=== PATIENT | female | born 1945 | race Caucasian/White ===

== ENCOUNTER 2024-10-27 11:01 | Emergency (ER) | payer MEDICARE ==
[~2024-10-27] VITALS: Ht 157.5 cm; Wt 66.0 kg
[2024-10-27] MEDS ORDERED: ASPIRIN REGIMEN81 MG PO (11:14)
[2024-10-27] MEDS ORDERED: ARTHRITIS PAIN650 MG PO (11:14)
[2024-10-27] MEDS ORDERED: CALCIUM 600-VI1 EAC3 PO (11:15)
[2024-10-27] MEDS ORDERED: BACLOFEN5 MG PO (11:15)
[2024-10-27] MEDS ORDERED: ATORVASTATIN CA80 MG PO (11:15)
[2024-10-27] MEDS ORDERED: CLOBETASOL PROP50 ML TOP (11:16)
[2024-10-27] MEDS ORDERED: VITAMIN D325 MC2 PO (11:16)
[2024-10-27] MEDS ORDERED: FLEET ENEMA133 ML PR (11:17)
[2024-10-27] MEDS ORDERED: COL-RITE100 MG PO (11:17)
[2024-10-27] MEDS ORDERED: FEROSUL325 MG PO (11:17)
[2024-10-27] MEDS ORDERED: DULCOLAX STOOL100 MG PO (11:17)
[2024-10-27] MEDS ORDERED: FARXIGA10 MG PO (11:17)
[2024-10-27] MEDS ORDERED: FLUOXETINE HCL40 MG PO (11:18)
[2024-10-27] MEDS ORDERED: HYDROCHLOROTHIA25 MG PO (11:18)
[2024-10-27] MEDS ORDERED: GLUCAGON EMERGEN1 M1 INJ (11:18)
[2024-10-27] MEDS ORDERED: HYDROCODON-ACE1 EA10 PO (11:19)
[2024-10-27] MEDS ORDERED: LANTUS100 UNITS/ SUB-Q (11:19)
[2024-10-27] MEDS ORDERED: HUMALOG100 UNIT/1 SUB-Q (11:19)
[2024-10-27] MEDS ORDERED: MELATONIN1 MG PO (11:20)
[2024-10-27] MEDS ORDERED: GENTLE LAX400 MG/5 M PO (11:20)
[2024-10-27] MEDS ORDERED: ZESTRIL20 MG PO (11:20)
[2024-10-27] MEDS ORDERED: MULTI VITAMIN1 EACH PO (11:21)
[2024-10-27] MEDS ORDERED: [UNRECOGNIZED DRUG - OTHER] MM (11:21)
[2024-10-27] MEDS ORDERED: MIRTAZAPINE15 MG PO (11:21)
[2024-10-27] MEDS ORDERED: BASE B,POLYETHYL1 GM PO (11:22)
[2024-10-27] MEDS ORDERED: NYSTATIN1 EAC4 TOP (11:22)
[2024-10-27] MEDS ORDERED: NARCAN4 MG NS (11:22)
[2024-10-27] MEDS ORDERED: RIFAMPIN300 MG PO (11:23)
[2024-10-27] MEDS ORDERED: SENNA LAX8.6 MG PO (11:23)
[2024-10-27] MEDS ORDERED: LYRICA50 MG PO (11:23)
[2024-10-27 11:30] LABS: BASOPHILS 1.1 % (0-2); EOSINOPHILS 4.6 % (0-6); HEMOGLOBIN 10.4 g/dL (12.0-18.0); LYMPHOCYTES 30.6 % (24-44); MCH 29.3 (27-36); MCHC 33.7 g/dl (30-36); MCV 86.7 fl (81-99); MONOCYTES 10.5 % (0-12); NEUTROPHILS 53.2 % (39-80); PLATELET COUNT 309 K/uL (140-440); RBC 3.57 M/ul (4.3-5.7); RDW 17.8 (10.5-15.0)
[2024-10-27 11:51] LABS: ALBUMIN 2.7 g/dL (3.4-5.0); ALBUMIN/GLOBULIN RATIO 0.6 (1.1-2.4); ANION GAP 10.2 (7-21); BILIRUBIN, TOTAL 0.4 mg/dL (0.2-1.0); BUN/CREATININE RATIO 51.26 (6.0-28.6); CALCIUM 8.6 mg/dL (8.5-10.1); CREATININE, SERUM 1.58 mg/dL (0.55-1.02); POTASSIUM 4.2 mmol/L (3.5-5.1); PROTEIN, TOTAL 7.2 g/dL (6.4-8.2)
[2024-10-27 13:03] LABS: BILIRUBIN, URINE NEGATIVE (negative); BLOOD/HGB, URINE NEGATIVE (Negative); KETONE, URINE NEGATIVE (Negative); LEUK ESTERASE, URINE NEGATIVE (negative); NITRITE, URINE NEGATIVE (negative)
[2024-10-27 14:45] VITALS: BP 180/59
--- NOTE | 2024-10-28 13:38 | EKG ---
[facility] [address] [place], [place] [address] Signed Normal sinus rhythm Right bundle branch block Abnormal ECG No previous ECGs available Confirmed by Alpa Smith MD ([id number]) on 10/28/2024 1:38:07 PM Electronically Signed By: ALPA SMITH MD 10/28/24 1338 PATIENT NAME: DANIEL BERRIOS Electrocardiogram DATE OF : 47 PHYSICIAN: ALPA SMITH MD REPORT #: [id number] REPORT IS CONFIDENTIAL AND NOT TO BE RELEASED WITHOUT AUTHORIZATION
== END 2024-10-27 14:45 | disposition home or self-care (01) ==
LOC: ED 11:01
PROVIDERS: Emergency Medicine
DX: R53.1 Weakness (principal); J32.9 Chronic sinusitis, unspecified; Z79.82 Long term (current) use of aspirin; Z79.899 Other long term (current) drug therapy; Z79.02 Long term (current) use of antithrombotics/antiplatelets
CPT/HCPCS: 36415; 51701; 70450; 71045; 80053; 81003; 83690; 83880; 84484; 85025; 93005; 93010; 99285-25

== ENCOUNTER 2024-11-10 12:41 | Observation (INO) | payer MEDICARE ==
[~2024-11-10] VITALS: Ht 157.5 cm; Wt 67.9 kg
[~2024-11-10 12:41] MED LIST: ARTHRITIS PAIN650 MG PO; ASPIRIN REGIMEN81 MG PO; ATORVASTATIN CA80 MG PO; BACLOFEN5 MG PO; BASE B,POLYETHYL1 GM PO; CALCIUM 600-VI1 EAC3 PO; CLOBETASOL PROP50 ML TOP; COL-RITE100 MG PO; DULCOLAX STOOL100 MG PO; FARXIGA10 MG PO; FEROSUL325 MG PO; FLEET ENEMA133 ML PR; FLUOXETINE HCL40 MG PO; GENTLE LAX400 MG/5 M PO; GLUCAGON EMERGEN1 M1 INJ; HUMALOG100 UNIT/1 SUB-Q; HYDROCHLOROTHIA25 MG PO; HYDROCODON-ACE1 EA10 PO; LANTUS100 UNITS/ SUB-Q; LYRICA50 MG PO; MELATONIN1 MG PO; MIRTAZAPINE15 MG PO; MULTI VITAMIN1 EACH PO; NARCAN4 MG NS; NYSTATIN1 EAC4 TOP; RIFAMPIN300 MG PO; SENNA LAX8.6 MG PO; VITAMIN D325 MC2 PO; ZESTRIL20 MG PO; [UNRECOGNIZED DRUG - OTHER] MM
--- OUTSIDE RECORDS SUMMARY | 2024-11-10 12:47 | XMS ---
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 Giancarlo has no Care Guidelines for this patient. Ilana VISIT COUNT (12 MO.) 2 [facility] [place] [facility]. TOTAL 2 NOTE: Visits indicate total known visits. ED/[facility] VISIT TRACKING (12 MO.) 11/10/2024 12:[address] [facility] [place] TYPE: Emergency COMPLAINT: - BLOOD SUGAR PROBLEMS 10/27/2024 11:02 [facility] [place] TYPE: Emergency COMPLAINT: - ALTERED MENTAL STATUS DIAGNOSES: - Altered mental status, unspecified - Chronic sinusitis, unspecified - group home (current) use of antithrombotics/antiplatelets - group home (current) use of aspirin - Other nursing home (current) drug therapy - Weakness INPATIENT VISIT TRACKING (12 MO.) No inpatient visits to display in this time frame [email or web address]
[2024-11-10] MEDS ORDERED: SODIUM CHLORIDE 0.9% 1,000 ML IV ONE (13:00)
[2024-11-10] MEDS ORDERED: DEXTROSE 50% 50 ML SYR IV ONE (13:00)
[2024-11-10 13:01] LABS: BASOPHILS 0.9 % (0-2); EOSINOPHILS 5.8 % (0-6); HEMATOCRIT 28.9 % (35.0-50.0); HEMOGLOBIN 9.8 g/dL (12.0-18.0); LYMPHOCYTES 38.2 % (24-44); MCH 29.3 (27-36); MCV 86.3 fl (81-99); MONOCYTES 9.9 % (0-12); NEUTROPHILS 45.2 % (39-80); PLATELET COUNT 208 K/uL (140-440); RBC 3.34 M/ul (4.3-5.7); RDW 17.1 (10.5-15.0)
[2024-11-10 13:30] LABS: ALBUMIN 2.7 g/dL (3.4-5.0); ALBUMIN/GLOBULIN RATIO 0.66 (1.1-2.4); ANION GAP 10.4 (7-21); BILIRUBIN, TOTAL 0.2 mg/dL (0.2-1.0); BUN/CREATININE RATIO 31.57 (6.0-28.6); CALCIUM 8.1 mg/dL (8.5-10.1); CREATININE, SERUM 1.33 mg/dL (0.55-1.02); POTASSIUM 3.4 mmol/L (3.5-5.1); PROTEIN, TOTAL 6.8 g/dL (6.4-8.2)
[2024-11-10 15:59] LABS: BILIRUBIN, URINE NEGATIVE (negative); BLOOD/HGB, URINE NEGATIVE (Negative); KETONE, URINE NEGATIVE (Negative); LEUK ESTERASE, URINE NEGATIVE (negative); NITRITE, URINE NEGATIVE (negative)
[2024-11-10] MEDS ORDERED: IBLOOD GLUCOSE TEST STRIP 1 EA TEST XX SCH (18:00)
--- NOTE | 2024-11-10 18:00 | EKG ---
[facility] [address] [facility] [place], [place] [address] Signed Normal sinus rhythm Right bundle branch block Abnormal ECG When compared with ECG of 27-OCT-2024 11:28, No significant change was found Confirmed by Alpa Smith MD ([id number]) on 11/10/2024 6:00:11 PM Electronically Signed By: ALPA SMITH MD 11/10/24 1800 PATIENT NAME: DANIEL BERRIOS Electrocardiogram DATE OF : 47 PHYSICIAN: ALPA SMITH MD REPORT #: [id number] REPORT IS CONFIDENTIAL AND NOT TO BE RELEASED WITHOUT AUTHORIZATION
--- NOTE | 2024-11-10 18:25 | NUR ---
THIS RN TO ED TO SOIL SPECIALIST PATIENT. PATIENT IN ED ROOM 8, TRANSPORTED VIA STRETCHER TO MED/SURG FLOOR. PATIENT TRANSFERRED TO HOSPITAL BED BY THIS RN AND LEO FLEMING USING SLIDE SHEET. PATIENT IS ON ROOM AIR, DROWSY BUT ALERT AND ORIENTED. IV TO LEFT WRIST FLUSHES WNL, SALINE LOCKED AT THIS TIME. VS AND WT OBTAINED AND RECORDED. PATIENT GIVEN CALL LIGHT, VERBALIZES UNDERSTANDING OF USE. REQUESTS ICE WATER AND ORANGE JUICE - PROVIDED. BURKE CHAIREZ OBTAINS BLOOD GLUCOSE - 168. PATIENT HAS NO REQUESTS, CALL LIGHT IN REACH. PATIENT'S FRIEND IS IN ROOM THROUGHOUT.
--- NOTE | 2024-11-10 18:38 | NUR ---
MARISELA FROM ED CALLS AND GIVES REPORT TO THIS RN. ALL QUESTIONS ANSWERED.
[2024-11-10 18:45] VITALS: BP 130/50
[2024-11-10] MEDS ORDERED: ACETAMINOPHEN 325 MG TAB PO PRN (18:45)
[2024-11-10] MEDS ORDERED: ondansetron HCL 4 MG/2 ML VIAL IV PRN (18:45)
--- NOTE | 2024-11-10 19:00 | NUR ---
PATIENT'S DAUGHTER CORRY ARRIVES AND REPORTS THAT SHE WILL BRING IN PATIENT'S HOME CPAP MACHINE FROM [facility]. PATIENT IS RESTING SUPINE IN BED, EYES CLOSED, MOUTH OPEN, RR EVEN AND UNLABORED. CALL LIGHT IN HER LAP. NO REQUESTS.
[2024-11-10 20:25] VITALS: BP 171/65
[2024-11-10 20:27] VITALS: BP 171/65
--- NOTE | 2024-11-10 22:04 | NUR ---
CB 238, DR DAN NOTIFIED, NO NEEW ORDERS AT THIS TIME
--- NOTE | 2024-11-10 23:05 | NUR ---
DANIEL HAS A HOME CPAP UNIT THAT RT SET UP FOR HER TO USE.
[2024-11-10] MEDS ORDERED: DEXTROSE 5% 1,000 ML IV PRN (23:30)
[2024-11-10] MEDS ORDERED: DEXTROSE 50% 50 ML SYR IV PRN ×2 (23:30)
[2024-11-10] MEDS ORDERED: IBLOOD GLUCOSE TEST STRIP 1 EA TEST XX PRN (23:30)
[2024-11-10] MEDS ORDERED: GLUCAGON,HUMAN RECOMBINANT 1 MG/ML VIAL SUB-Q PRN (23:30)
[2024-11-11] VITALS (10 sets, daily range): BP systolic 143–171; BP diastolic 43–67
--- NOTE | 2024-11-11 00:01 | NUR ---
Patient called for assistance off of the bed weiss. Patient had a large bm, and was wet from urine. Assisted her with a gown change, attend change, and her pad for bed. Her cpap was put back in place and call light is within reach. Nothing else needed at this time.
--- NOTE | 2024-11-11 01:59 | NUR ---
Awakens easily, using CPAP, no c/o pain. CBG 235, received 5 unit SSI, repositioned in bed, purewick in place, LE elevated
[2024-11-11] MEDS ORDERED: INSULIN LISPRO 100 UNIT/ML ML SUB-Q SCH ×2 (02:00→08:00)
[2024-11-11] MEDS ORDERED: IBLOOD GLUCOSE TEST STRIP 1 EA TEST XX SCH ×2 (02:00→08:00)
--- NOTE | 2024-11-11 03:54 | NUR ---
Patient called because her purewick leaked and her attend was wet. I helped her change her attend and placed purewick back in place. Call light is within reach and nothing else is needed at this time.
--- NOTE | 2024-11-11 05:20 | NUR ---
Using home CPAP, no s/sx distress. cooperative with vitals and changing of purewick. no c/o pain
[2024-11-11 05:40] LABS: BASOPHILS 0.9 % (0-2); EOSINOPHILS 3.6 % (0-6); HEMOGLOBIN 9.6 g/dL (12.0-18.0); LYMPHOCYTES 35.1 % (24-44); MCH 29.7 (27-36); MCHC 34.4 g/dl (30-36); MCV 86.4 fl (81-99); MONOCYTES 11.5 % (0-12); NEUTROPHILS 48.9 % (39-80); PLATELET COUNT 207 K/uL (140-440); RBC 3.23 M/ul (4.3-5.7); RDW 16.8 (10.5-15.0)
[2024-11-11 05:49] LABS: ANION GAP 8.4 (7-21); BUN/CREATININE RATIO 32.03 (6.0-28.6); CREATININE, SERUM 1.28 mg/dL (0.55-1.02); MAGNESIUM 2.3 mg/dL (1.8-2.4); POTASSIUM 4.4 mmol/L (3.5-5.1)
--- NOTE | 2024-11-11 06:27 | NUR ---
0530 - as per lab draw cbg results were 72. 0545 - OJ given, pt alert and oriented, wakes up easily, using home CPAP, denies feelings of low blood sugar. 0625 - CBG done at nursing discretion, CBG 119.
--- NOTE | 2024-11-11 07:10 | NUR ---
Pt report received from LEO Yanez.
--- NOTE | 2024-11-11 07:35 | NUR ---
In with pt for introductions and to update white board. Pt states she is "hungry". Advised pt that breakfast will around within an hour. Side rails up, call light in reach, bedside table in reach. Denies needs at this time.
--- NOTE | 2024-11-11 07:48 | NUR ---
Advised, by LEO Sales, that pt is c/o pain in her right leg, RN requesting to administer PO tylenol per emar. Advised RN that this would be ok. Later advised by LEO MAYES that pt verbally reports a "spasm" in her right leg, but was grabbing at/holding her left.
--- NOTE | 2024-11-11 07:51 | NUR ---
PT USES CALL LIGHT, STATES SHE IS HAVING 9/10 PAIN IN R LEG, STATES PAIN IS "LIKE A SPASM". PRIMARY NURSE NOTIFIED AND STATES THIS RN IS OKAY TO GIVE TYLENOL PER ORDER, TYLENOL GIVEN. PT STATES NO FURTHER NEEDS AT THIS TIME, CALL LIGHT WITHIN REACH.
[2024-11-11] MEDS ORDERED: INSULIN GLARGINE-YFGN 100 UNIT/ML ML SUB-Q SCH (09:00)
[2024-11-11] MEDS ORDERED: ENOXAPARIN SODIUM 40 MG/0.4 ML SYR SUB-Q SCH (09:00)
[2024-11-11] MEDS ORDERED: lisinopriL 20 MG TAB PO SCH (09:00)
--- NOTE | 2024-11-11 10:07 | NUR ---
While in with pt for VS and med administration (pt had just returned from toileting with assistance from drill rig operator Jodie Hodgson, she had a very large, formed soft BM, and 100ml clear yellow urine. 350ml clear yellow urine emptied from her purewick container as well. Pt without purewick while up in chair, brief on), pt reports some pain in the site of her IV in the left wrist. Noted the IV had some blood around the insertion site and is leaking with flush. Will redress and further assess the site. Call light in reach. Pt up in chair.
[2024-11-11] MEDS ORDERED: PHARMACY RENAL DOSE ADJUSTMENT 1 DOSE MISC PO SCH (12:00)
--- NOTE | 2024-11-11 13:24 | NUR ---
Dr. Smith in with pt. Discussing potential discharge to [facility] today. Pt states she feels stronger. PC to [facility] who stated they would accept her today; however, the wheelchair van does not run on Sundays. The pt states her daughters are out of town for the weekend. Dr. Smith notified.
[2024-11-11] MEDS ORDERED: ASPIRIN 81 MG TABEC PO SCH (13:26)
[2024-11-11] MEDS ORDERED: BACLOFEN 10 MG TAB PO PRN (13:30)
[2024-11-11] MEDS ORDERED: DULCOLAX10 MG PR (13:41)
[2024-11-11] MEDS ORDERED: HUMALOG100 UNIT/2 SUB-Q (13:48)
--- NOTE | 2024-11-11 13:54 | NUR ---
PT RESTING IN CHAIR, VITAL TAKEN PT REPORTING NO PAIN OR DIZZINESS GOT PT FRESH ICE WATER CALL LIGHT WITHIN PT REACH PT DID NOT NEED ANYTHING ELSE AT THIS TIME
--- NOTE | 2024-11-11 14:17 | NUR ---
MED REC COMPLETE
--- NOTE | 2024-11-11 14:39 | NUR ---
PATIENT BACK TO BED WITH 1PA AND FWW TO TAKE A NAP BEFORE DINNER.
--- NOTE | 2024-11-11 20:02 | NUR ---
PT AWAKE, WATCHINT TV AND VISITING WITH FAMILY VIA PHONE. NO C/O PAIN, ALERT ANDORIENTED TO ALL. HELPS WITH REPOSITIONING. NO C/O PAIN AT THIS TIME
--- NOTE | 2024-11-11 20:41 | NUR ---
PT IN BED. CALL LIGHT WITHIN REACH.
[2024-11-11] MEDS ORDERED: PREGABALIN 50 MG CAP PO SCH (21:00)
[2024-11-11] MEDS ORDERED: MIRTAZAPINE 15 MG TAB PO SCH (21:00)
--- NOTE | 2024-11-11 21:24 | NUR ---
Alert and oriented to all, used call light. Up to BRp, 1PA, voided, does own care. Back to bed. Tolerated well, no c/o pain R knee. bruising over arms and legs no changes. SL LA patent. CBG 173 received 1 unit SSI. Helpe with repositioning in bed, Alarms in place. Pure wick in place at BROWN her requets placed at this time
--- NOTE | 2024-11-11 21:25 | NUR ---
RT SET ADNIEL'S HOME CPAP +6 UP ON THE BEDSIDE TABLE READY FOR USE
--- NOTE | 2024-11-11 23:14 | NUR ---
Resting, using home CPAP. no s/sx distress, repositions self in bed.
--- NOTE | 2024-11-12 01:58 | NUR ---
RESATING, EYES CLOSED, USING HOME CPAP MACHINE. PUREWICK IN PLACE. NO S/SX DISTRESS, ALRMS IN PLACE
[2024-11-12 04:51] VITALS: BP 109/61
[2024-11-12 04:53] VITALS: BP 109/61
--- NOTE | 2024-11-12 05:16 | NUR ---
PT RESTING, EYEES CLOSED, AWAKENS EASILY, USING HOME CPAP, DENIES C/O PAIN, DENIES NEEDING TO GET UP TO BRP. PUREWICK IN PLACE, NO DRAINAGE AT THIS TIME. HELPS WITH REPOSITIONING IN BED, FRESH WATER AND OJ GIVEN ON REQUETS
--- NOTE | 2024-11-12 05:44 | NUR ---
Pt incontinent of large amont of urine, gown and bedding changed, pure rod wagner. Cooperative
--- NOTE | 2024-11-12 06:51 | NUR ---
In with pt for introductions and to update white board. Pt is resting supine in bed, eyes closed, breathing is regular, even, and non-labored. Side rails up x4, call light in reach.
--- NOTE | 2024-11-12 07:07 | NUR ---
Pt report received from LEO Yanez
--- NOTE | 2024-11-12 08:00 | NUR ---
UPDATES SENT TO [facility].
--- NOTE | 2024-11-12 08:08 | NUR ---
IN TO DO MORNING BLOOD SUGAR. PATIENT UP TO CHAIR, 1PA FWW. CALL LIGHT IN REACH. NO FURTHER NEEDS AT THIS TIME.
[2024-11-12 08:33] VITALS: BP 155/61
[2024-11-12 08:34] VITALS: BP 155/61
--- NOTE | 2024-11-12 08:56 | NUR ---
In with pt in response to call light. Pt needs to use the toilet. 1 person SBA as pt ambulated to bathroom using FWW. Pt tolerated activity well, although she moves slowly and deliberately. Pt voided 600ml clear yellow urine and needed assistance only with pulling up the briefs. Assisted pt with donning her pants/pajama bottoms after she sat in the chair. Pt back to bed, taking a phone call. Sitting on edge of bed with legs dangling, call light in reach, 3 side rails up. Curtain left open, door closed
[2024-11-12] MEDS ORDERED: FLUOXETINE HCL 20 MG CAP PO SCH (09:00)
--- NOTE | 2024-11-12 09:00 | NUR ---
CALLED [facility] TO LET THEM KNOW PATIENT IS DISCHARGING. ORDERS FAXED.
--- NOTE | 2024-11-12 09:13 | NUR ---
PATIENT IN BED RESTING AT THIS TIME. I&O'S CHARTED. CALL LIGHT IN REACH. NO FURTHER NEEDS AT THIS TIME.
--- NOTE | 2024-11-12 09:35 | NUR ---
[facility] CALLED TO PICK PATIENT UP AT 11:00 AM.
--- NOTE | 2024-11-12 09:48 | NUR ---
UR CLINICAL REVIEW: [facility] [place] REVIEW MEETS OBS FOR DM WITH NEED FOR HYPOGLYCEMIA [facility] OBS 11/10/24 @ 1753 ORDER MATCHES REG NO AUTH REQUIRED FOR OBS VISIT PER GUIDELINE RETURN TO HOME THIS AM.
[2024-11-12 10:39] VITALS: BP 165/45
--- NOTE | 2024-11-12 10:48 | NUR ---
Verbal report called to [facility], spoke with LEO Serna. Questions answered.
[2024-11-12 10:57] VITALS: BP 165/45
== END 2024-11-12 10:57 ==
LOC: ED 12:41 → MS 12:43
PROVIDERS: Emergency Medicine; ADMIT Student in an Organized Health Care Education/Training Program; ATTEND Student in an Organized Health Care Education/Training Program
DX: E11.649 Type 2 diabetes mellitus with hypoglycemia without coma (principal); F43.21 Adjustment disorder with depressed mood; R53.81 Other malaise; G47.33 Obstructive sleep apnea (adult) (pediatric); I10 Essential (primary) hypertension; D50.9 Iron deficiency anemia, unspecified; E11.42 Type 2 diabetes mellitus with diabetic polyneuropathy; Z95.0 Presence of cardiac pacemaker; Z79.82 Long term (current) use of aspirin; Z79.899 Other long term (current) drug therapy; Z79.4 Long term (current) use of insulin
CPT/HCPCS: 36415; 51701; 70450; 71045; 80048; 80053; 81003; 83735; 84443; 85025; 93005; 93010; 94799; 97161; 99285-25; A9270; G0378; J1650; J1815; J7030

== ENCOUNTER 2024-12-15 20:24 | Inpatient (IN) | payer MEDICARE ==
[~2024-12-15] VITALS: Ht 157.5 cm; Wt 59.7 kg
[~2024-12-15 20:24] MED LIST changes: +DULCOLAX10 MG PR; +HUMALOG100 UNIT/2 SUB-Q
[2024-12-15 20:46] LABS: BASOPHILS 0.7 % (0.1-1.2); HEMOGLOBIN 10.6 g/dL (11.2-15.7); LYMPHOCYTES 25.3 % (19.3-51.7); MCH 28.4 PG (25.6-32.2); MCHC 32.1 g/dL (32.2-35.5); MCV 88.5 fL (79.4-94.8); MONOCYTES 6.8 % (4.7-12.5); NEUTROPHILS 64.9 % (34.0-71.1); PLATELET COUNT 279 K/uL (182-369); RBC 3.73 M/uL (3.93-5.22)
[2024-12-15] MEDS ORDERED: METOPROLOL SUCC50 MG PO (20:49)
[2024-12-15] MEDS ORDERED: FARXIGA10 MG PO (20:55)
[2024-12-15] MEDS ORDERED: SEROQUEL25 MG PO (21:03)
[2024-12-15] MEDS ORDERED: REMERON15 MG PO (21:04)
[2024-12-15] MEDS ORDERED: DAPAGLIFLOZIN10 MG PO (21:04)
[2024-12-15 21:10] LABS: ACETAMINOPHEN 0 ug/mL (10-30); ALBUMIN 3.3 g/dL (3.4-5.0); ALBUMIN/GLOBULIN RATIO 0.73 (1.1-2.4); ALCOHOL, MEDICAL <3 ng/dL (<3); ALKALINE PHOSPHATASE 149 U/L (46-116); ALT (SGPT) 18 U/L (14-59); ANION GAP 13.8 (7-21); AST (SGOT) 16 U/L (15-37); BILIRUBIN, TOTAL 0.4 mg/dL (0.2-1.0); BUN/CREATININE RATIO 23.71 (6.0-28.6); CALCIUM 8.6 mg/dL (8.5-10.1); CARBON DIOXIDE 26 mmol/L (21-32); CHLORIDE 102 mmol/L (98-107); CREATININE, SERUM 1.94 mg/dL (0.55-1.02); GLOMERULAR FILTRATION RATE,EST 26 mL/min (>60); POTASSIUM 4.8 mmol/L (3.5-5.1); PROTEIN, TOTAL 7.8 g/dL (6.4-8.2); SALICYLATE 1.4 mg/dL (2.8-20.0); TSH, 3RD GENERATION 1.108 uIU/mL (0.358-3.740); UREA NITROGEN 46 mg/dL (7-18)
[2024-12-15] MEDS ORDERED: NALOXONE HCL 2 MG/2 ML SYR IV ONE (21:15)
[2024-12-15] MEDS ORDERED: LACTATED RINGER'S 1,000 ML IV ONE (21:45)
[2024-12-15 22:26] LABS: BILIRUBIN, URINE NEGATIVE (negative); BLOOD/HGB, URINE TRACE-L (Negative); KETONE, URINE NEGATIVE (Negative); LEUK ESTERASE, URINE NEGATIVE (negative); NITRITE, URINE NEGATIVE (negative); PH, URINE 5.5 (5-7)
[2024-12-15 22:41] LABS: AMPHETAMINES, URINE NEGATIVE (NEGATIVE); BARBITURATES, URINE NEGATIVE (NEGATIVE); BENZODIAZEPINE, URINE NEGATIVE (NEGATIVE); BUPRENORPHINE, URINE NEGATIVE (NEGATIVE); CANNABINOID, URINE NEGATIVE (NEGATIVE); COCAINE, URINE NEGATIVE (NEGATIVE); ECSTASY, URINE NEGATIVE (NEGATIVE); FENTANYL, URINE NEGATIVE (NEGATIVE); METHADONE, URINE NEGATIVE (NEGATIVE); OPIATES, URINE POSITIVE (NEGATIVE); OXYCODONE, URINE NEGATIVE (NEGATIVE); PHENCYCLIDINE, URINE NEGATIVE (NEGATIVE)
[2024-12-15 23:02] LABS: BACTERIA, URINE RARE /hpf (negative); CASTS, URINE HYALINE 1+ \\lpf; CRYSTALS, URINE NONE SEEN (0-1+); EPITHELIAL CELLS, URINE SQUAMOUS 1+ /lpf (0-1+)
[2024-12-15 23:03] LABS: COLLECTION TYPE, URINE CLEAN CATCH; REFLEX CULTURE, URINE No (No)
[2024-12-16] VITALS (28 sets, daily range): BP systolic 106–197; BP diastolic 43–158
[2024-12-16] MEDS ORDERED: LACTATED RINGER'S 1,000 ML IV SCH (00:45)
[2024-12-16] MEDS ORDERED: DEXTROSE 50% 50 ML SYR IV PRN ×2 (03:15)
[2024-12-16] MEDS ORDERED: DEXTROSE 5% 1,000 ML IV PRN (03:15)
[2024-12-16] MEDS ORDERED: METOPROLOL TARTRATE 5 MG/5 ML VIAL IV PRN (03:15)
[2024-12-16] MEDS ORDERED: IBLOOD GLUCOSE TEST STRIP 1 EA TEST XX PRN (03:15)
[2024-12-16] MEDS ORDERED: GLUCAGON,HUMAN RECOMBINANT 1 MG/ML VIAL SUB-Q PRN (03:15)
[2024-12-16] MEDS ORDERED: INSULIN LISPRO 100 UNIT/ML ML SUB-Q SCH ×2 (04:15→08:00)
[2024-12-16] MEDS ORDERED: IBLOOD GLUCOSE TEST STRIP 1 EA TEST VI SCH ×2 (04:15→08:00)
[2024-12-16 05:20] LABS: BASOPHILS 0.7 % (0.1-1.2); EOSINOPHILS 2.5 % (0.7-5.8); HEMATOCRIT 34.1 % (34.1-44.9); HEMOGLOBIN 10.8 g/dL (11.2-15.7); LYMPHOCYTES 32.9 % (19.3-51.7); MCH 28.7 PG (25.6-32.2); MCHC 31.7 g/dL (32.2-35.5); MCV 90.7 fL (79.4-94.8); NEUTROPHILS 55.7 % (34.0-71.1); PLATELET COUNT 262 K/uL (182-369); RBC 3.76 M/uL (3.93-5.22)
[2024-12-16 05:35] LABS: MAGNESIUM 2.1 mg/dL (1.8-2.4); PHOSPHORUS, INORGANIC 5.6 mg/dL (2.5-4.9)
[2024-12-16 05:36] LABS: ALBUMIN 3.1 g/dL (3.4-5.0); ALBUMIN/GLOBULIN RATIO 0.7 (1.1-2.4); ANION GAP 11.6 (7-21); BILIRUBIN, TOTAL 0.4 mg/dL (0.2-1.0); BUN/CREATININE RATIO 24.24 (6.0-28.6); CALCIUM 8.6 mg/dL (8.5-10.1); CREATININE, SERUM 1.65 mg/dL (0.55-1.02); POTASSIUM 4.6 mmol/L (3.5-5.1); PROTEIN, TOTAL 7.5 g/dL (6.4-8.2)
[2024-12-16] MEDS ORDERED: LIDOCAINE 2% VISCOUS 6 ML SYR TOP ONE (06:45)
[2024-12-16] MEDS ORDERED: ACETAMINOPHEN 325 MG TAB PO PRN (09:15)
[2024-12-16] MEDS ORDERED: SODIUM CHLORIDE 0.9% 1,000 ML IV SCH (09:15)
[2024-12-16] MEDS ORDERED: ondansetron HCL 4 MG/2 ML VIAL IV PRN (09:15)
[2024-12-16] MEDS ORDERED: ENOXAPARIN SODIUM 40 MG/0.4 ML SYR SUB-Q SCH (09:19)
[2024-12-16] MEDS ORDERED: PHARMACY RENAL DOSE ADJUSTMENT 1 DOSE MISC PO SCH (12:00)
[2024-12-16] MEDS ORDERED: ATORVASTATIN 40 MG TAB PO SCH (21:00)
--- NOTE | 2024-12-16 22:35 | EKG ---
[facility] [address] [facility] [place] [address] Signed Normal sinus rhythm Normal ECG When compared with ECG of 10-NOV-2024 13:12, Right bundle branch block is no longer present Confirmed by Parker Ragsdale MD () on 12/16/2024 10:35:31 PM Electronically Signed By: PARKER RAGSDALE MD 12/16/242234 PATIENT NAME: DANIEL BERRIOS Electrocardiogram DATE OF : 47 PHYSICIAN: PARKER RAGSDALE MD REPORT #: [id number] REPORT IS CONFIDENTIAL AND NOT TO BE RELEASED WITHOUT AUTHORIZATION
[2024-12-17] VITALS (14 sets, daily range): BP systolic 129–189; BP diastolic 53–83
[2024-12-17 05:38] LABS: BASOPHILS 0.5 % (0.1-1.2); EOSINOPHILS 3.5 % (0.7-5.8); HEMATOCRIT 31.8 % (34.1-44.9); HEMOGLOBIN 10.2 g/dL (11.2-15.7); MCH 28.5 PG (25.6-32.2); MCHC 32.1 g/dL (32.2-35.5); MCV 88.8 fL (79.4-94.8); MONOCYTES 8.9 % (4.7-12.5); NEUTROPHILS 46.8 % (34.0-71.1); PLATELET COUNT 245 K/uL (182-369); RBC 3.58 M/uL (3.93-5.22)
[2024-12-17 05:52] LABS: ALBUMIN 2.7 g/dL (3.4-5.0); ALBUMIN/GLOBULIN RATIO 0.71 (1.1-2.4); ANION GAP 13.1 (7-21); BILIRUBIN, TOTAL 0.4 mg/dL (0.2-1.0); BUN/CREATININE RATIO 25.19 (6.0-28.6); CALCIUM 8.2 mg/dL (8.5-10.1); CREATININE, SERUM 1.31 mg/dL (0.55-1.02); MAGNESIUM 1.9 mg/dL (1.8-2.4); PHOSPHORUS, INORGANIC 3.9 mg/dL (2.5-4.9); POTASSIUM 4.1 mmol/L (3.5-5.1); PROTEIN, TOTAL 6.5 g/dL (6.4-8.2)
[2024-12-17] MEDS ORDERED: ASPIRIN 81 MG TABEC PO SCH (09:00)
[2024-12-17] MEDS ORDERED: METOPROLOL SUCCINATE 50 MG TABCR PO SCH (09:00)
[2024-12-17] MEDS ORDERED: FERROUS SULFATE 325 MG TAB PO SCH (09:00)
[2024-12-17] MEDS ORDERED: hydroCHLOROthiazide 25 MG TAB PO SCH (09:00)
[2024-12-17] MEDS ORDERED: FLUOXETINE HCL 20 MG CAP PO SCH (09:25)
[2024-12-17] MEDS ORDERED: PREGABALIN 25 MG CAP PO SCH (09:30)
[2024-12-18 01:14] VITALS: BP 128/62
[2024-12-18 01:17] VITALS: BP 128/62
[2024-12-18 04:42] VITALS: BP 133/62
[2024-12-18 04:43] VITALS: BP 133/62
[2024-12-18 05:44] LABS: BASOPHILS 0.6 % (0.1-1.2); EOSINOPHILS 3.5 % (0.7-5.8); HEMATOCRIT 32.5 % (34.1-44.9); HEMOGLOBIN 10.4 g/dL (11.2-15.7); LYMPHOCYTES 36.3 % (19.3-51.7); MCH 28.5 PG (25.6-32.2); MONOCYTES 8.5 % (4.7-12.5); NEUTROPHILS 50.8 % (34.0-71.1); PLATELET COUNT 251 K/uL (182-369); RBC 3.65 M/uL (3.93-5.22)
[2024-12-18 06:05] LABS: ALBUMIN 2.6 g/dL (3.4-5.0); ALBUMIN/GLOBULIN RATIO 0.67 (1.1-2.4); ANION GAP 13.2 (7-21); BILIRUBIN, TOTAL 0.5 mg/dL (0.2-1.0); BUN/CREATININE RATIO 25.38 (6.0-28.6); CALCIUM 8.1 mg/dL (8.5-10.1); CREATININE, SERUM 1.3 mg/dL (0.55-1.02); MAGNESIUM 1.8 mg/dL (1.8-2.4); POTASSIUM 4.2 mmol/L (3.5-5.1); PROTEIN, TOTAL 6.5 g/dL (6.4-8.2)
[2024-12-18 09:50] VITALS: BP 106/54
[2024-12-18] MEDS ORDERED: FEROSUL325 MG PO (11:29)
[2024-12-18] MEDS ORDERED: PREGABALIN25 MG PO (11:30)
[2024-12-18 12:34] VITALS: BP 121/54
== END 2024-12-18 15:40 | disposition home or self-care (01) | DRG 918 ==
LOC: ED 20:24 → CCU 20:25 → MS 12-16 09:20
PROVIDERS: Internal Medicine; ADMIT Family Medicine; ATTEND Family Medicine
PROC: 0T9B70Z Drainage of Bladder with Drainage Device, Via Natural or Artificial Opening (ICD-10-PCS; principal; 2024-12-15)
DX: T42.6X1A Poisoning by other antiepileptic and sedative-hypnotic drugs, accidental (unintentional), initial encounter (principal); N17.9 Acute kidney failure, unspecified; T40.2X1A Poisoning by other opioids, accidental (unintentional), initial encounter; I10 Essential (primary) hypertension; G47.00 Insomnia, unspecified; E11.9 Type 2 diabetes mellitus without complications; G47.30 Sleep apnea, unspecified; Z96.651 Presence of right artificial knee joint; R33.9 Retention of urine, unspecified; F39 Unspecified mood [affective] disorder; E78.5 Hyperlipidemia, unspecified; Z95.0 Presence of cardiac pacemaker; Z79.82 Long term (current) use of aspirin; Z87.81 Personal history of (healed) traumatic fracture; Z79.891 Long term (current) use of opiate analgesic; Z79.899 Other long term (current) drug therapy; Z79.4 Long term (current) use of insulin; X58.XXXA Exposure to other specified factors, initial encounter
CPT/HCPCS: 36415; 51701; 51702; 51798; 70450; 71045; 73552; 80053; 80307; 81001; 83036; 83735; 84100; 84443; 85025; 93005; 93010; 97162; 97165; 97530; 97535; 99284-25; A9270; G0378; G0480; J1650; J1815; J2310; J7030; J7121

== ENCOUNTER 2025-02-15 14:50 | Emergency (ER) | payer MEDICARE ==
[~2025-02-15] VITALS: Ht 157.5 cm; Wt 59.7 kg
[~2025-02-15 14:50] MED LIST changes: +DAPAGLIFLOZIN10 MG PO; +METOPROLOL SUCC50 MG PO; +PREGABALIN25 MG PO; +REMERON15 MG PO; +SEROQUEL25 MG PO
--- OUTSIDE RECORDS SUMMARY | 2025-02-15 14:57 | XMS ---
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 No recent Security Events currently on file CRITERIA MET - 6 ED Visits in 6 Months CARE PROVIDERS DREW MARTIN Nurse Practitioner: Family Current PHONE: [phone] LESLY PRINGLE Family Medicine Current PHONE: [phone] [address] Physician Assistant Kristina MORILLO PHONE: [phone] EDITH WEBER Emergency Medicine Current PHONE: [phone] SUNDEEP GUADALUPE Nurse Practitioner: Adult Health Kristina ISAIAH PHONE: [phone] ADA SOUZA Internal Medicine Current PHONE: [phone] DEMARCO SOUZA Internal Medicine Current PHONE: Unknown SVETLANA VELASCO Nurse Practitioner Current PHONE: [phone] Giancarlo has no Care Guidelines for this patient. E.D. VISIT COUNT (12 MO.) 12 [place] Makena [facility] ([place]) [address] [facility] TOTAL 16 NOTE: Visits indicate total known visits. ED/UCC VISIT TRACKING (12 MO.) 02/15/2025 14:51 [facility] [place] TYPE: Emergency COMPLAINT: - NECK PAIN 12/15/2024 20:24 [facility] [place] TYPE: Emergency COMPLAINT: - ALTERED 11/10/2024 12:42 [facility] TYPE: Emergency COMPLAINT: - BLOOD SUGAR PROBLEMS 10/27/2024 11:02 [facility] [place] TYPE: Emergency COMPLAINT: - ALTERED MENTAL STATUS DIAGNOSES: - Altered mental status, unspecified - Chronic sinusitis, unspecified - technician terminal and repeater (current) use of antithrombotics/antiplatelets - senior care (current) use of aspirin - Other technician terminal and repeater (current) drug therapy - Weakness [facility]04[facility]24 03[facility]: Emergency DIAGNOSES: - Acidosis, unspecified - Bradycardia, unspecified - Conduction disorder, unspecified - Hyperkalemia - Sepsis, unspecified organism - Severe sepsis with septic shock - Altered Mental Status - Bradycardia 09/15/2024 02:33 [facility] ([place]) TYPE: Emergency DIAGNOSES: - Chronic kidney disease, unspecified - Displaced oblique fracture of shaft of right femur, initial encounter for closed fracture - Hyperkalemia - Type 2 diabetes mellitus with hyperglycemia - Knee Pain 06/22/2024 07:25 [facility] ([place]) TYPE: Emergency DIAGNOSES: - Fracture of unspecified part of neck of left femur, initial encounter for closed fracture - Pain in left hip - Unspecified fall, initial encounter - Fall 06/01/2024 10:55 [facility] ([place]) TYPE: Emergency DIAGNOSES: - Fracture of unspecified part of neck of left femur, initial encounter for closed fracture - Leg Pain 05/29/2024 13:28 [facility] ([place]) TYPE: Emergency DIAGNOSES: - Displaced fracture of greater trochanter of left femur, initial encounter for closed fracture - Hip Pain [facility]24 [facility] DIAGNOSES: - Displaced fracture of greater trochanter of left femur, initial encounter for closed fracture - Back Pain 05/26/2024 06:36 [facility]: Emergency DIAGNOSES: - Contusion of left hip, initial encounter - Unspecified fall, initial encounter - Unspecified place in unspecified non-institutional (private) residence as the place of occurrence of the external cause - Hip Pain 05/03/2024 20:41 [facility] [place] ([place] TYPE: Emergency DIAGNOSES: - Fall on same level, unspecified, initial encounter - Hyperglycemia, unspecified - Unspecified fracture of sacrum, initial encounter for closed fracture - Dizziness 04/28/2024 16:00 [facility] ([place]) TYPE: Emergency DIAGNOSES: - Unspecified fall, initial encounter - Urinary tract infection, site not specified - Dizziness - Fall - Headache (Adult - New Onset Or New Symptoms) - Tailbone Pain 04/22/2024 15:24 [facility] ([place]) TYPE: Emergency DIAGNOSES: - Contusion of scalp, initial encounter - Spinal stenosis, cervical region - Strain of muscle, fascia and tendon at neck level, initial encounter - Unspecified fall, initial encounter - ambulance - Fall - Head Laceration 03/06/2024 11:43 [facility] ([place]) TYPE: Emergency DIAGNOSES: - Bacterial infection, unspecified - Unspecified abdominal pain - Urinary tract infection, site not specified - ambulance - Back Pain - Hypertension 03/03/2024 14:21 [facility]: Emergency DIAGNOSES: - Dorsalgia, unspecified - Other specified disorders of kidney and ureter - Back Pain - Flank Pain - Numbness INPATIENT VISIT TRACKING (12 MO.) 12/16/2024 09:20 [facility] TYPE: Medical Surgical COMPLAINT: - ACCIDENTAL OVERDOSE DIAGNOSES: - Acute kidney failure, unspecified - Acute kidney failure, unspecified - Essential (primary) hypertension - Essential (primary) hypertension - Exposure to other specified factors, initial encounter - Exposure to other specified factors, initial encounter - Hyperlipidemia, unspecified - Hyperlipidemia, unspecified - Insomnia, unspecified - Insomnia, unspecified - technician terminal and repeater (current) use of aspirin - senior care (current) use of aspirin - technician terminal and repeater (current) use of insulin - senior care (current) use of insulin - technician terminal and repeater (current) use of opiate analgesic - senior care (current) use of opiate analgesic - Other fatigue - Other technician terminal and repeater (current) drug therapy - Other snf (current) drug therapy - Personal history of (healed) traumatic fracture - Personal history of (healed) traumatic fracture - Poisoning by other antiepileptic and sedative-hypnotic drugs, accidental (unintentional), initial encounter - Poisoning by other antiepileptic and sedative-hypnotic drugs, accidental (unintentional), initial encounter - Poisoning by other opioids, accidental (unintentional), initial encounter - Poisoning by other opioids, accidental (unintentional), initial encounter - Presence of cardiac pacemaker - Presence of cardiac pacemaker - Presence of right artificial knee joint - Presence of right artificial knee joint - Retention of urine, unspecified - Retention of urine, unspecified - Sleep apnea, unspecified - Sleep apnea, unspecified - Type 2 diabetes mellitus without complications - Type 2 diabetes mellitus without complications - Unspecified mood [affective] disorder - Unspecified mood [affective] disorder 11/10/2024 12:43 [facility] [place] TYPE: Observation COMPLAINT: - HYPOGLYCEMIA DIAGNOSES: - Adjustment disorder with depressed mood - Essential (primary) hypertension - Hypoglycemia, unspecified - Iron deficiency anemia, unspecified - technician terminal and repeater (current) use of aspirin - senior care (current) use of insulin - Obstructive sleep apnea (adult) (pediatric) - Other snf (current) drug therapy - Other malaise - Presence of cardiac pacemaker - Type 2 diabetes mellitus with diabetic polyneuropathy - Type 2 diabetes mellitus with hypoglycemia without coma 10/04/2024 03:12 [facility] TYPE: Medical Surgical DIAGNOSES: - Acidosis, unspecified - Bilateral primary osteoarthritis of knee - Bradycardia, unspecified - Conduction disorder, unspecified - Encounter for adjustment and management of other part of cardiac pacemaker - Hyperkalemia - Sepsis, unspecified organism - Severe sepsis with septic shock 09/15/2024 02:33 [facility] ([place]) TYPE: Surgical Services DIAGNOSES: - Anemia in chronic kidney disease - Chronic kidney disease, stage 3a - Chronic kidney disease, stage 3b - Chronic kidney disease, unspecified - Displaced oblique fracture of shaft of right femur, initial encounter for closed fracture - Fracture of unspecified part of neck of left femur, subsequent encounter for closed fracture with routine healing - Hyperkalemia - Iron deficiency - Latent tuberculosis - Major depressive disorder, recurrent, moderate - Pruritus, unspecified - Type 2 diabetes mellitus with hyperglycemia 06/01/2024 10:55 [facility] ([place]) TYPE: Medical Surgical DIAGNOSES: - Acute cystitis without hematuria - Chronic kidney disease, stage 3a - Fracture of unspecified part of neck of left femur, initial encounter for closed fracture - Fracture of unspecified part of neck of left femur, subsequent encounter for closed fracture with routine healing - technician terminal and repeater (current) use of insulin - Type 2 diabetes mellitus without complications [email or web address]
[2025-02-15] MEDS ORDERED: LANTUS SOL100 UNIT/1 SUB-Q (15:40)
[2025-02-15 16:56] LABS: BASOPHILS 0.8 % (0.1-1.2); EOSINOPHILS 4.0 % (0.7-5.8); LYMPHOCYTES 26.8 % (19.3-51.7); MCH 28.8 PG (25.6-32.2); MCHC 31.4 g/dL (32.2-35.5); MCV 91.8 fL (79.4-94.8); MONOCYTES 8.7 % (4.7-12.5); NEUTROPHILS 59.1 % (34.0-71.1); RBC 4.16 M/uL (3.93-5.22)
[2025-02-15 17:16] LABS: ALT (SGPT) 46.0 U/L (14-59); AST (SGOT) 37.0 U/L (15-37); GLOMERULAR FILTRATION RATE,EST 32.0 mL/min (>60); PROTEIN, TOTAL 7.7 g/dL (6.4-8.2); UREA NITROGEN 48.0 mg/dL (7-18)
[2025-02-15] MEDS ORDERED: SODIUM CHLORIDE 0.9% 1,000 ML IV PRN (17:30)
[2025-02-15 17:54] LABS: AMPHETAMINES, URINE NEGATIVE (NEGATIVE); BARBITURATES, URINE NEGATIVE (NEGATIVE); BENZODIAZEPINE, URINE NEGATIVE (NEGATIVE); CANNABINOID, URINE NEGATIVE (NEGATIVE); COCAINE, URINE NEGATIVE (NEGATIVE); ECSTASY, URINE NEGATIVE (NEGATIVE); FENTANYL, URINE NEGATIVE (NEGATIVE); METHADONE, URINE NEGATIVE (NEGATIVE); OPIATES, URINE NEGATIVE (NEGATIVE); OXYCODONE, URINE NEGATIVE (NEGATIVE); PHENCYCLIDINE, URINE NEGATIVE (NEGATIVE)
[2025-02-15 19:22] LABS: BLOOD/HGB, URINE NEGATIVE (Negative); KETONE, URINE NEGATIVE (Negative); LEUK ESTERASE, URINE NEGATIVE (negative); NITRITE, URINE NEGATIVE (negative)
[2025-02-15 19:27] LABS: EPITHELIAL CELLS, URINE SQUAMOUS 3+ /lpf (0-1+)
[2025-02-15 19:28] LABS: BACTERIA, URINE NONE SEEN /hpf (negative); CASTS, URINE NONE SEEN \\lpf; CRYSTALS, URINE NONE SEEN (0-1+); REFLEX CULTURE, URINE No (No)
[2025-02-15 19:49] VITALS: BP 155/107
--- NOTE | 2025-02-16 23:08 | EKG ---
[facility] [address] [facility] [place] [address] Signed Ventricular-paced rhythm with occasional supraventricular complexes and with occasional and consecutive premature ventricular complexes Abnormal ECG When compared with ECG of 15-DEC-2024 20:35, Electronic ventricular pacemaker has replaced Sinus rhythm Confirmed by Parker Ragsdale MD () on 02/16/2025 11:08:17 PM Electronically Signed By: PARKER RAGSDALE MD 02/16/25 2308 PATIENT NAME: DANIEL BERRIOS Electrocardiogram DATE OF : 47 PHYSICIAN: PARKER RAGSDALE MD REPORT #: [id number] REPORT IS CONFIDENTIAL AND NOT TO BE RELEASED WITHOUT AUTHORIZATION
== END 2025-02-15 19:50 | disposition home or self-care (01) ==
LOC: ED 14:50
PROVIDERS: Emergency Medicine
DX: R53.1 Weakness (principal); I10 Essential (primary) hypertension; E11.9 Type 2 diabetes mellitus without complications; G47.33 Obstructive sleep apnea (adult) (pediatric); I25.2 Old myocardial infarction; Z91.81 History of falling; Z91.89 Other specified personal risk factors, not elsewhere classified; Z79.4 Long term (current) use of insulin; Z79.82 Long term (current) use of aspirin; Z79.84 Long term (current) use of oral hypoglycemic drugs; Z79.899 Other long term (current) drug therapy
CPT/HCPCS: 36415; 70450; 71045; 72170; 80053; 80307; 81001; 83735; 84484; 85025; 93005; 93010; 99285-25; G0480; J7030

== ENCOUNTER 2025-04-24 12:57 | Emergency (ER) | payer MEDICARE ==
[~2025-04-24] VITALS: Ht 157.5 cm; Wt 63.9 kg
--- OUTSIDE RECORDS SUMMARY | ~2025-04-24 | XMS | Continuity of Care Document ---
Demographics + + + | Address | [address] | | | [place] [address] | + + + | Preferred Language | Unknown | + + + | Marital Status | Never | + + + | Lutheran Affiliation | Unknown | + + + | Race | White | + + + | Ethnic Group | Not or | + + + Author + + + | Author | [facility] | + + + | Organization | [facility] | + + + | Address | [address] | | | [place] [address] | + + + | Phone | | + + + Care Team Providers + + + + | Care Injection Operator Name | Role | Phone | + + + + Unavailable | Unavailable | + + + + Unavailable | Unavailable | + + + + Allergies No information. Encounters No information. Functional Status No information. Immunizations No information. Medications + + + + | date | description | facility | + + + + | (no date) | LISINOPRIL | [facility] | | | | [facility] | + + + + | (no date) | DAPAGLIFLOZIN PROPANEDIOL | [facility] | | | | [facility] | + + + + | (no date) | Dapagliflozin Propanediol | [facility] | | | | [facility] | + + + + | (no date) | QUETIAPINE FUMARATE | [facility] | | | | [facility] | + + + + | (no date) | INSULIN LISPRO | [facility] | | | | [facility] | + + + + | (no date) | INSULIN LISPRO | [facility] | | | | [facility] | + + + + | (no date) | MIRTAZAPINE | [facility] | | | | [facility] | + + + + | (no date) | ATORVASTATIN CALCIUM | [facility] | | | | [facility] | + + + + | (no date) | INSULIN GLARGINE | [facility] | | | | [facility] | + + + + | (no date) | Aspirin | [facility] | | | | [facility] | + + + + | (no date) | FERROUS SULFATE | [facility] | | | | [facility] | + + + + | (no date) | Glucagon HCl | [facility] | | | | [facility] | + + + + | (no date) | HYDROCHLOROTHIAZIDE | [facility] | | | | [facility] | + + + + | (no date) | FLUOXETINE HCL | [facility] | | | | [facility] | + + + + | (no date) | Baclofen | [facility] | | | | [facility] | + + + + | (no date) | PREGABALIN | [facility] | | | | [facility] | + + + + | (no date) | INSULIN | [facility] | | | MESFIN HU | [facility] | + + + + | (no date) | HYDROCODONE | [facility] | | | BIT/ACETAMINOPHEN | [facility] | + + + + | (no date) | METOPROLOL SUCCINATE | [facility] | | | | [facility] | + + + + Problems + + + + | date | description | facility | + + + + | 2025-02-15 00:00 | Polypharmacy | [facility] | | | | [facility] | + + + + Procedures No information. Results/Labs +--------+--------+ +---------+--------+---------+ | test | date | facility | value | unit | notes | +--------+--------+ +---------+--------+---------+ + + | Result panel 1 | + + + + + +-------+ + + | Glucose | 2025-02-15 | | 187 | (missing) | (missing) | | Shantanud-Hetal | 15:31:07 | [facility] | | | | | | [facility] - [facility] | | | | | | [facility] | | | | + + + +-------+ + + + + | Result panel 2 | + + + + + +--------+ + + | WBC # Bld | 2025-02-15 | | 5.29 | (missing) | (missing) | | Auto | 16:53:07 | [facility] | | | | + + + +--------+ + + + + | Result panel 3 | + + + + + +--------+ + + | Lymphocytes | 2025-02-15 | | 26.8 | (missing) | (missing) | | NFr Bld | 16:53:07 | [facility] | | | | | Auto | [facility] | | | | + + + +--------+ + + + + | Result panel 4 | + + + + + +-------+ + + | Monocytes | 2025-02-15 | | 8.7 | (missing) | (missing) | | NFr Bld Auto | 16:53:07 | [facility] | | | | + + + +-------+ + + + + | Result panel 5 | + + + + + +-------+ + + | Eosinophil | 2025-02-15 | | 4.0 | (missing) | (missing) | | NFr Bld Auto | 16:53:07 | [facility] | | | | + + + +-------+ + + + + | Result panel 6 | + + + + + +-------+ + + | Basophils | 2025-02-15 | | 0.8 | (missing) | (missing) | | NFr Bld Auto | 16:53:07 | [facility] | | | | + + + +-------+ + + + + | Result panel 7 | + + + + + +--------+ + + | RBC # Bld | 2025-02-15 | | 4.16 | (missing) | (missing) | | Auto | 16:53:07 | [facility] | | | | + + + +--------+ + + + + | Result panel 8 | + + + + + +--------+ + + | Hgb | 2025-02-15 | | 12.0 | (missing) | (missing) | | Bld-mCnc | 16:53:07 | [facility] | | | | + + + +--------+ + + + + | Result panel 9 | + + + + + +-------+---------+ + | Glucose | 2025-02-15 | | 192 | mg/dL | (missing) | | Greg-Hetal | 16:53:07 | [facility] | [facility] | | | | + + + +-------+---------+ + + + | Result panel 10 | + + + + + +------+---------+ + | BUN | 2025-02-15 | | 48 | mg/dL | (missing) | | SerPl-mCbita | 16:53:07 | [facility] | | [facility] | | | | + + + +------+---------+ + + + | Result panel 11 | + + + + + +--------+---------+ + | Creat | 2025-02-15 | | 1.65 | mg/dL | (missing) | | SerPl-Hetal | 16:53:07 | [facility] | | | | + + + +--------+---------+ + + + | Result panel 12 | + + + + + +------+ + + | eGFRcr | 2025-02-15 | | 32 | (missing) | (missing) | | SerPlBld | 16:53:07 | [facility] | | | | | CKD-EPI 2020 | [facility] | | | | + + + +------+ + + + + | Result panel 13 | + + + + + +---------+ + + | BUN/Creat | 2025-02-15 | | 29.09 | (missing) | (missing) | | SerPl | 16:53:07 | [facility] | | | | | | | - | | | | | | [facility] | | | | + + + +---------+ + + + + | Result panel 14 | + + + + + +--------+ + + | Hct VFr.DF | 2025-02-15 | | 38.2 | (missing) | (missing) | | Bld Auto | 16:53:07 | [facility] | | | | + + + +--------+ + + + + | Result panel 15 | + + + + + +-------+ + + | Sodium | 2025-02-15 | | 140 | (missing) | (missing) | | SerPl-sCnc | 16:53:07 | [facility] | | | | + + + +-------+ + + + + | Result panel 16 | + + + + + +-------+ + + | Potassium | 2025-02-15 | | 5.5 | (missing) | (missing) | | SerPl-sCnc | 16:53:07 | [facility] | | | | + + + +-------+ + + + + | Result panel 17 | + + + + + +-------+ + + | Chloride | 2025-02-15 | | 108 | (missing) | (missing) | | SerPl-sCnc | 16:53:07 | [facility] | | | | + + + +-------+ + + + + | Result panel 18 | + + + + + +------+ + + | CO2 | 2025-02-15 | | 25 | (missing) | (missing) | | SerPl-sCnc | 16:53:07 | [facility] | [facility] | | | | + + + +------+ + + + + | Result panel 19 | + + + + + +--------+ + + | Anion Gap | 2025-02-15 | | 12.5 | (missing) | (missing) | | SerPl | 16:53:07 | [facility] | | | | | Calculated.4 | [facility]-sCnc [facility] | | | | + + + +--------+ + + + + | Result panel 20 | + + + + + +-------+---------+ + | Calcium | 2025-02-15 | | 8.8 | mg/dL | (missing) | | [facility] | 16:53:07 | [facility] | [facility] | | | | + + + +-------+---------+ + + + | Result panel 21 | + + + + + +-------+---------+ + | Magnesium | 2025-02-15 | | 3.1 | mg/dL | (missing) | | SerPl-mCbita | 16:53:07 | [facility] | | | | + + + +-------+---------+ + + + | Result panel 22 | + + + + + +-------+ + + | Prot | 2025-02-15 | | 7.7 | (missing) | (missing) | | Greg-bita | 16:53:07 | [facility] | | | | + + + +-------+ + + + + | Result panel 23 | + + + + + +-------+ + + | Albumin | 2025-02-15 | | 3.3 | (missing) | (missing) | | SerPl-Hetal | 16:53:07 | [facility] | | | | + + + +-------+ + + + + | Result panel 24 | + + + + + +-------+ + + | Globulin | 2025-02-15 | | 4.4 | (missing) | (missing) | | Ser-Hetal | 16:53:07 | [facility] | | | | + + + +-------+ + + + + | Result panel 25 | + + + + + +--------+ + + | RBC Auto | 2025-02-15 | | 91.8 | (missing) | (missing) | | | 16:53:07 | [facility] | | | | + + + +--------+ + + + + | Result panel 26 | + + + + + +--------+ + + | | 2025-02-15 | | 0.75 | (missing) | (missing) | | Albumin/Glob | 16:53:07 | [facility] | | | | | SerPl | [facility] | | | | + + + +--------+ + + + + | Result panel 27 | + + + + + +-------+---------+ + | Bilirub | 2025-02-15 | | 0.7 | mg/dL | (missing) | | SerPmajo-Hetal | 16:53:07 | [facility] | [facility] | | | | + + + +-------+---------+ + + + | Result panel 28 | + + + + + +------+ + + | AST | 2025-02-15 | | 37 | (missing) | (missing) | | SerPl-cCnc | 16:53:07 | [facility] | | | | + + + +------+ + + + + | Result panel 29 | + + + + + +------+ + + | ALT | 2025-02-15 | | 46 | (missing) | (missing) | | SerPl-cCnc | 16:53:07 | [facility] | | | | + + + +------+ + + + + | Result panel 30 | + + + + + +-------+ + + | ALP | 2025-02-15 | | 171 | (missing) | (missing) | | SerPl-cCnc | 16:53:07 | [facility] | | | | + + + +-------+ + + + + | Result panel 31 | + + + + + +-------+ + + | Troponin I | 2025-02-15 | | 8.1 | (missing) | (missing) | | SerPl | 16:53:07 | [facility] | | | | | HS-Hetal | [facility] | | | | + + + +-------+ + + + + | Result panel 32 | + + + + + +------+ + + | Ethanol | 2025-02-15 | | <3 | (missing) | (missing) | | SerPl-sCnc | 16:53:07 | [facility] | | | | + + + +------+ + + + + | Result panel 33 | + + + + + +--------+ + + | MCH RBC Qn | 2025-02-15 | | 28.8 | (missing) | (missing) | | Auto | 16:53:07 | [facility] | | | | + + + +--------+ + + + + | Result panel 34 | + + + + + +--------+ + + | MCHC RBC | 2025-02-15 | | 31.4 | (missing) | (missing) | | Auto-EntMCnc | 16:53:07 | [facility] | | | | + + + +--------+ + + + + | Result panel 35 | + + + + + +-------+ + + | Platelet # | 2025-02-15 | | 260 | (missing) | (missing) | | Bld Auto | 16:53:07 | [facility] | | | | + + + +-------+ + + + + | Result panel 36 | + + + + + +--------+ + + | Neutrophils | 2025-02-15 | | 59.1 | (missing) | (missing) | | NFr Bld | 16:53:07 | [facility] | | | | | Auto | | [facility] | | | | + + + +--------+ + + + + | Result panel 37 | + + + + + + + + + | Color Ur | 2025-02-15 | | YELLOW | (missing) | (missing) | | Auto | 17:33:07 | [facility] | | | | + + + + + + + + + | Result panel 38 | + + + + + +---------+ + + | Character | 2025-02-15 | | CLEAR | (missing) | (missing) | | Ur | 17:33:07 | [facility] | | | | + + + +---------+ + + + + | Result panel 39 | + + + + + +---------+ + + | Glucose Ur | 2025-02-15 | | LARGE | (missing) | (missing) | | Ql Strip | 17:33:07 | [facility] | | | | + + + +---------+ + + + + | Result panel 40 | + + + + + + + + + | Bilirub Ur | 2025-02-15 | | NEGATIVE | (missing) | (missing) | | Ql Strip | 17:33:07 | [facility] | | | | + + + + + + + + + | Result panel 41 | + + + + + + + + + | Ketonearmaan Ur | 2025-02-15 | | NEGATIVE | (missing) | (missing) | | Ql Strip | 17:33:07 | [facility] | | | | + + + + + + + + + | Result panel 42 | + + + + + +---------+ + + | Sp Miah Ur | 2025-02-15 | | 1.020 | (missing) | (missing) | | Strip | 17:33:07 | [facility] | | | | + + + +---------+ + + + + | Result panel 43 | + + + + + + + + + | Hgb Ur Ql | 2025-02-15 | | NEGATIVE | (missing) | (missing) | | Strip | 17:33:07 | [facility] | | | | + + + + + + + + + | Result panel 44 | + + + + + +-------+ + + | pH Ur Strip | 2025-02-15 | | 6.0 | (missing) | (missing) | | | 17:33:07 | [facility] | | | | + + + +-------+ + + + + | Result panel 45 | + + + + + +------+ + + | Prot Ur | 2025-02-15 | | 30 | (missing) | (missing) | | Strip-Hetal | 17:33:07 | [facility] | [facility] | | | | + + + +------+ + + + + | Result panel 46 | + + + + + + + + + | | 2025-02-15 | | NORMAL | (missing) | (missing) | | Urobilinogen | 17:33:07 | [facility] | | | | | Ur | [facility] Strip-Hetal | [facility] | | | | + + + + + + + + + | Result panel 47 | + + + + + + + + + | Nitrite Ur | 2025-02-15 | | NEGATIVE | (missing) | (missing) | | Ql Strip | 17:33:07 | [facility] | | | | + + + + + + + + + | Result panel 48 | + + + + + + + + + | Leukocyte | 2025-02-15 | | NEGATIVE | (missing) | (missing) | | esterase Ur | 17:33:07 | [facility] | | | | | Ql Strip | [facility] | | | | + + + + + + + + + | Result panel 49 | + + + + + +-------+ + + | RBC #/area | 2025-02-15 | | 0-1 | (missing) | (missing) | | UrnS HPF | 17:33:07 | [facility] | | | [facility] | | | | + + + +-------+ + + + + | Result panel 50 | + + + + + +-------+ + + | WBC #/area | 2025-02-15 | | 2-3 | (missing) | (missing) | | UrnS HPF | 17:33:07 | [facility] | [facility] | | | | + + + +-------+ + + + + | Result panel 51 | + + + + + + + + + | Epi Cells | 2025-02-15 | | SQUAMOUS 3+ | (missing) | (missing) | | #/area UrnS | 17:33:07 | [facility] | | | | | HPF | [facility] | | | | + + + + + + + + + | Result panel 52 | + + + + + + + + + | Crystals | 2025-02-15 | | NONE SEEN | (missing) | (missing) | | Neal Micro | 17:33:07 | [facility] | | | | | | [facility] | | | | + + + + + + + + + | Result panel 53 | + + + + + + + + + | Bacteria | 2025-02-15 | | NONE SEEN | (missing) | (missing) | | #/area UrnS | 17:33:07 | [facility] | | | | | HPF | [facility] | | | | + + + + + + + + + | Result panel 54 | + + + + + + + + + | Casts | 2025-02-15 | | NONE SEEN | (missing) | (missing) | | #/area UrnS | 17:33:07 | [facility] | | | | | LPF | [facility] | | | | + + + + + + + + + | Result panel 55 | + + + + + +------+ + + | Bacteria Ur | 2025-02-15 | | No | (missing) | (missing) | | Cult | 17:33:07 | [facility] | | | | | [facility] | | | | + + + +------+ + + + + | Result panel 56 | + + + + + + + + + | Urn Spec | 2025-02-15 | | CLEAN CATCH | (missing) | (missing) | | Collect Meth | 17:33:07 | [facility] | | | | | Ur | | [facility] | | | | + + + + + + + + + | Result panel 57 | + + + + + + + + + | | 2025-02-15 | | NEGATIVE | (missing) | (missing) | | Amphetamines | 17:33:07 | [facility] | | | | | Ur Ql | | - [facility] | | [facility] | | Scn>500 | [facility] | ng/mL | [facility] | | | | + + + + + + + + + | Result panel 58 | + + + + + + + + + | | 2025-02-15 | | NEGATIVE | (missing) | (missing) | | Barbiturates | 17:33:07 | [facility] | | | | | Ur Ql | | - [facility] | Scn>300 | [facility] | ng/mL | [facility] | | | | + + + + + + + + + | Result panel 59 | + + + + + + + + + | Benzodiaz | 2025-02-15 | | NEGATIVE | (missing) | (missing) | | Ur Ql | 17:33:07 | [facility] | | | | | Scn>300 | | [facility] | ng/mL | [facility] | | | | + + + + + + + + + | Result panel 60 | + + + + + + + + + | Cocaine Ur | 2025-02-15 | | NEGATIVE | (missing) | (missing) | | Ql Scn | 17:33:07 | [facility] | | | | | | [facility] | | | | + + + + + + + + + | Result panel 61 | + + + + + + + + + | | 2025-02-15 | | NEGATIVE | (missing) | (missing) | | Buprenorphin | 17:33:07 | [facility] | | | | | e Ur Ql Scn | [facility] | | | | + + + + + + + + + | Result panel 62 | + + + + + + + + + | oxyCODONE | 2025-02-15 | | NEGATIVE | (missing) | (missing) | | Ur Ql Scn | 17:33:07 | [facility] | | | | | [facility] | | | | + + + + + + + + + | Result panel 63 | + + + + + + + + + | MDMA Ur Ql | 2025-02-15 | | NEGATIVE | (missing) | (missing) | | Scn | 17:33:07 | [facility] | | | | [facility] | | | | + + + + + + + + + | Result panel 64 | + + + + + + + + + | Methadone | 2025-02-15 | | NEGATIVE | (missing) | (missing) | | Ur Ql | 17:33:07 | [facility] | | | | | Scn>300 | [facility] | ng/mL [facility] | | | | + + + + + + + + + | Result panel 65 | + + + + + + + + + | Opiates Ur | 2025-02-15 | | NEGATIVE | (missing) | (missing) | | Ql Scn | 17:33:07 | [facility] | | | [facility] | | | | + + + + + + + + + | Result panel 66 | + + + + + + + + + | PCP Ur Ql | 2025-02-15 | | NEGATIVE | (missing) | (missing) | | Scn>25 ng/mL | 17:33:07 | [facility] | [facility] | | | | + + + + + + + + + | Result panel 67 | + + + + + + + + + | THC Ur Ql | 2025-02-15 | | NEGATIVE | (missing) | (missing) | | Scn>50 ng/mL | 17:33:07 | [facility] | | | | + + + + + + + + + | Result panel 68 | + + + + + + + + + | fentaNYL Ur | 2025-02-15 | | NEGATIVE | (missing) | (missing) | | Ql Scn | 17:33:07 | [facility] | | | | + + + + + + + Social History + + + + | date | description | facility | + + + + | (no date) | Unknown if ever smoked | [facility] | | | | [facility] | + + + + Vital Signs + + + +---------+ | date | measurement | value | units | + + + +---------+ | 2025-02-15 00:00 | BMI | 24.1 | kg/m2 | + + + +---------+ | 2025-02-15 00:00 | BP_diastolic | 107 | mmHg | + + + +---------+ | 2025-02-15 00:00 | BP_systolic | 155 | mmHg | + + + +---------+ | 2025-02-15 00:00 | heart_rate | 59 | /min | + + + +---------+ | 2025-02-15 00:00 | height_metric | 157.48 | cm | + + + +---------+ | 2025-02-15 00:00 | height_standard | 62 | in | + + + +---------+ | 2025-02-15 00:00 | o2_saturation | 100 | % | + + + +---------+ | 2025-02-15 00:00 | respiration_rate | 12 | /min | + + + +---------+ | 2025-02-15 00:00 | | 97.8 | F | | | temperature_standar | | | | | d | | | + + + +---------+ | 2025-02-15 00:00 | weight_metric | 59.701 | kg | + + + +---------+ | 2025-02-15 00:00 | weight_standard | 131.618 | lb | + + + +---------+"
[~2025-04-24 12:57] MED LIST changes: +LANTUS SOL100 UNIT/1 SUB-Q
[2025-04-24 13:27] LABS: BASOPHILS 0.8 % (0.1-1.2); EOSINOPHILS 3.2 % (0.7-5.8); LYMPHOCYTES 19.2 % (19.3-51.7); MCH 28.7 PG (25.6-32.2); MCHC 31.3 g/dL (32.2-35.5); MCV 91.8 fL (79.4-94.8); MONOCYTES 7.4 % (4.7-12.5); NEUTROPHILS 69.0 % (34.0-71.1); RBC 4.01 M/uL (3.93-5.22)
[2025-04-24 13:37] LABS: ALT (SGPT) 40.0 U/L (14-59); AST (SGOT) 34.0 U/L (15-37); GLOMERULAR FILTRATION RATE,EST 36.0 mL/min (>60); PROTEIN, TOTAL 7.5 g/dL (6.4-8.2); UREA NITROGEN 37.0 mg/dL (7-18)
[2025-04-24 15:00] LABS: BLOOD/HGB, URINE NEGATIVE (Negative); KETONE, URINE NEGATIVE (Negative); LEUK ESTERASE, URINE NEGATIVE (negative); NITRITE, URINE NEGATIVE (negative)
[2025-04-24 15:06] LABS: BACTERIA, URINE RARE /hpf (negative); CASTS, URINE NONE SEEN \\lpf; CRYSTALS, URINE NONE SEEN (0-1+); EPITHELIAL CELLS, URINE SQUAMOUS 1+ /lpf (0-1+)
[2025-04-24 15:07] LABS: REFLEX CULTURE, URINE Yes (No)
[2025-04-24] MEDS ORDERED: HYDROCODONE/APAP 10/325 1 TAB PO ONE (15:30)
[2025-04-24] MEDS ORDERED: HYDROCODONE/ACETA 5/325 TAB PO ONE (15:30)
[2025-04-24 16:04] VITALS: BP 184/71
--- NOTE | 2025-04-25 06:06 | EKG ---
[facility] [address] [place] [address] Signed Sinus rhythm with frequent ventricular-paced complexes and premature supraventricular complexes Right bundle branch block Abnormal ECG When compared with ECG of 15-FEB-2025 15:21, premature ventricular complexes are no longer present premature supraventricular complexes are now present Vent. rate has increased BY 11 BPM Confirmed by PUNEET MONAHAN MD ([id number]) on 04/25/2025 6:06:33 AM Electronically Signed By: PUNEET MONAHAN 04/25/25 0606 PATIENT NAME: DANIEL BERRIOS Electrocardiogram DATE OF : 47 PHYSICIAN: PUNEET MONAHAN REPORT #: [id number] REPORT IS CONFIDENTIAL AND NOT TO BE RELEASED WITHOUT AUTHORIZATION
== END 2025-04-24 16:06 | disposition home or self-care (01) ==
LOC: ED 12:57
PROVIDERS: Emergency Medicine
DX: S09.90XA Unspecified injury of head, initial encounter (principal); M54.2 Cervicalgia; M54.50 Low back pain, unspecified; I10 Essential (primary) hypertension; E11.9 Type 2 diabetes mellitus without complications; G47.30 Sleep apnea, unspecified; W18.30XA Fall on same level, unspecified, initial encounter
CPT/HCPCS: 36415; 70450; 71250; 72125; 73552; 74176; 80053; 81001; 85025; 87088; 93005; 93010; 99285; A9270

== ENCOUNTER 2025-05-02 16:15 | Inpatient (IN) | payer MEDICARE ==
[~2025-05-02] VITALS: Ht 157.5 cm; Wt 60.1 kg
--- OUTSIDE RECORDS SUMMARY | ~2025-05-02 | XMS | Continuity of Care Document ---
Demographics + + + | Address | [address] | | | [place] [address] | + + + | Preferred Language | Unknown | + + + | Marital Status | Never | + + + | Orthodox Affiliation | Unknown | + + + | Race | White | + + + | Ethnic Group | Not or | + + + Author + + + | Author | [facility] | + + + | Organization | [facility] | + + + | Address | [address] | | | [place] [address] | + + + | Phone | | + + + Care Team Providers + + + + | Care Bisque Kiln Placer Name | Role | Phone | + + + + Unavailable | Unavailable | + + + + Unavailable | Unavailable | + + + + Allergies No information. Encounters No information. Functional Status No information. Immunizations No information. Medications + + + + | date | description | facility | + + + + | (no date) | L[facility]INOPRIL [facility] | | | | [facility] | + + + + | (no date) | DAPAGLIFLOZIN PROPANEDIOL | [facility] | | | | [facility] | + + + + | (no date) | Dapagliflozin Propanediol | [facility] | | | | [facility] | + + + + | (no date) | QUETIAPINE FUMARATE | [facility] | | | | [facility] | + + + + | (no date) | INSULIN LISPRO | [facility] | | | | [facility] | + + + + | (no date) | INSULIN LISPRO | [facility] | | | | [facility] | + + + + | (no date) | MIRTAZAPINE | [facility] | | | | [facility] | + + + + | (no date) | ATORVASTATIN CALCIUM | [facility] | | | | [facility] | + + + + | (no date) | INSULIN GLARGINE | [facility] | | | | [facility] | + + + + | (no date) | Aspirin | [facility] | | | | [facility] | + + + + | (no date) | FERROUS SULFATE | [facility] | | | | [facility] | + + + + | (no date) | Glucagon HCl | [facility] | | | | [facility] | + + + + | (no date) | HYDROCHLOROTHIAZIDE | [facility] | | | | [facility] | + + + + | (no date) | FLUOXETINE HCL | [facility] | | | | [facility] | + + + + | (no date) | Baclofen | [facility] | | | | [facility] | + + + + | (no date) | PREGABALIN | [facility] | | | | [facility] | + + + + | (no date) | INSULIN | [facility] | | | MESIFN HU | [facility] | + + + + | (no date) | HYDROCODONE | [facility] | | | BIT/ACETAMINOPHEN | [facility] | + + + + | (no date) | METOPROLOL SUCCINATE | [facility] | | | | [facility] | + + + + Problems [...] 8.8 | mg/dL | (missing) | | [facility] | 16:53:07 | [facility] | | [...] date) | Unknown if ever smoked | [facility] | | | | [facility] | + + + + Vital [...]
--- OUTSIDE RECORDS SUMMARY | ~2025-05-02 | XMS | Continuity of Care Document ---
Demographics + + + | Address | [address] | | | [place] [address] | + + + | Preferred Language | Unknown | + + + | Marital Status | Never | + + + | Cheondoism Affiliation | Unknown | + + + | Race | White | + + + | Ethnic Group | Not or | + + + Author + + + | Author | [facility] | + + + | Organization | [facility] | + + + | Address | [address] | | | [place] [address] | + + + | Phone | | + + + Care Team Providers + + + + | Care Clerical Adjudicator Name | Role | Phone | + + + + Unavailable | Unavailable | + + + + Unavailable | Unavailable | + + + + Allergies No information. Encounters No information. Functional Status No information. Immunizations No information. Medications + + + + | date | description | facility | + + + + | (no date) | LISINOPRIL | [facility] | | | | [facility] | + + + + | (no date) | DAPAGLIFLOZIN PROPANEDIOL | [facility] | | | | [facility] | + + + + | (no date) | Dapagliflozin Propanediol | [facility] | | | | [facility] | + + + + | (no date) | QUETIAPINE FUMARATE | [facility] | | | | [facility] | + + + + | (no date) | INSULIN LISPRO | [facility] | | | | [facility] | + + + + | (no date) | INSULIN LISPRO | [facility] | | | | [facility] | + + + + | (no date) | MIRTAZAPINE | [facility] | | | | [facility] | + + + + | (no date) | ATORVASTATIN CALCIUM | [facility] | | | | [facility] | + + + + | (no date) | INSULIN GLARGINE | [facility] | | | | [facility] | + + + + | (no date) | Aspirin | [facility] | | | | [facility] | + + + + | (no date) | FERROUS SULFATE | [facility] | | | | [facility] | + + + + | (no date) | Glucagon HCl | [facility] | | | | [facility] | + + + + | (no date) | HYDROCHLOROTHIAZIDE | [facility] | | | | [facility] | + + + + | (no date) | FLUOXETINE HCL | [facility] | | | | [facility] | + + + + | (no date) | Baclofen | [facility] | | | | [facility] | + + + + | (no date) | PREGABALIN | [facility] | | | | [facility] | + + + + | (no date) | INSULIN | [facility] | | | MESFIN HU | [facility] | + + + + | (no date) | HYDROCODONE | [facility] | | | BIT/ACETAMINOPHEN | [facility] | + + + + | (no date) | METOPROLOL SUCCINATE | [facility] | | | | [facility] | + + + + Problems + + + + | date | description | facility | + + + + | 2025-02-15 00:00 | Polypharmacy | [facility] | | | | [facility] [...] | | | | | | - [facility] | | | | | | [...] 8.8 | mg/dL | (missing) | | [facility] | 16:53:07 | [facility] | | | [...] date) | Unknown if ever smoked | [facility] | | | | [facility] | + + + + Vital [...]
--- OUTSIDE RECORDS SUMMARY | 2025-05-02 16:22 | XMS ---
PreManage Notification: DANIEL BERRIOS Security Pre Coder Events No recent Security Events currently on file CRITERIA MET - [facility] - 2 Visits in 30 Days CARE PROVIDERS RDEW MARTIN Nurse Practitioner: Family Current PHONE: [phone] LESLY PRINGLE Family Medicine Current PHONE: [phone] [address] Physician Assistant Kristina MORILLO PHONE: [phone] EDITH WEBER Emergency Medicine Current PHONE: [phone] SUNDEEP GUADALUPE Nurse Practitioner: Adult Health Kristina ISAIAH PHONE: [phone] ADA SOUZA Internal Medicine Current PHONE: [phone] DEMARCO SOUZA Internal Medicine Current PHONE: Unknown SVETLANA VELASCO Nurse Practitioner Current PHONE: [phone] Giancarlo has no Care Guidelines for this patient. E.Sean VISIT COUNT (12 MO.) 8 Efe Lanier Niya DanielleRamon ([place]) 6 [facility] TOTAL 14 NOTE: Visits indicate total known visits. 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 - 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 - [facility] (current) use of oral hypoglycemic drugs - Obstructive sleep apnea (adult) (pediatric) - Old myocardial infarction - 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 - Other specified personal risk factors, not elsewhere classified - Type 2 diabetes mellitus without complications - Weakness 12/15/2024 20:24 [facility] [place] TYPE: Emergency COMPLAINT: - ALTERED 11/10/2024 12:42 [facility] [place] TYPE: Emergency COMPLAINT: - BLOOD SUGAR PROBLEMS 10/27/2024 11:02 [facility] [place] TYPE: Emergency COMPLAINT: - ALTERED MENTAL STATUS DIAGNOSES: - Altered mental status, unspecified - Chronic sinusitis, unspecified - [facility] (current) use of antithrombotics/antiplatelets - [facility] (current) use of aspirin - Other half-way (current) drug therapy - Weakness 10/04/2024 03:12 [facility] RIDLEY ([place]) TYPE: Emergency DIAGNOSES: - Acidosis, unspecified - Bradycardia, unspecified - Conduction disorder, unspecified - Hyperkalemia - Sepsis, unspecified organism - Severe sepsis with septic shock - Altered Mental Status - Bradycardia 09/15/2024 02:33 [facility] R[place] ([place]) TYPE: Emergency DIAGNOSES: - Chronic kidney disease, unspecified - Displaced oblique fracture of shaft of right femur, initial encounter for closed fracture - Hyperkalemia - Type 2 diabetes mellitus with hyperglycemia - Knee Pain [facility] DIAGNOSES: - Fracture of unspecified part of neck of left femur, initial encounter for closed fracture - Pain in left hip - Unspecified fall, initial encounter - Fall 06/01/2024 10:55 [facility] RIDLEY ([place]) TYPE: Emergency DIAGNOSES: - Fracture of unspecified part of neck of left femur, initial encounter for closed fracture - Leg Pain 05/29/2024 13:28 [facility] RIDLEY ([place]) TYPE: Emergency DIAGNOSES: - Displaced fracture of greater trochanter of left femur, initial encounter for closed fracture - Hip Pain 05/27/2024 20:27 [facility] RIDLEY ([place]) TYPE: Emergency DIAGNOSES: - Displaced fracture of greater trochanter of left femur, initial encounter for closed fracture - Back Pain 05/26/2024 06:36 [facility] RIDLEY ([place]) TYPE: Emergency DIAGNOSES: - Contusion of left hip, initial encounter - Unspecified fall, initial encounter - Unspecified place in unspecified non-institutional (private) residence as the place of occurrence of the external cause - Hip Pain 05/03/2024 20:41 [facility] RIDLEY ([place]) TYPE: Emergency DIAGNOSES: - Fall on same level, unspecified, initial encounter - Hyperglycemia, unspecified - Unspecified fracture of sacrum, initial encounter for closed fracture - Dizziness INPATIENT VISIT TRACKING (12 MO.) 03/14/2025 06:06 [facility]: Intensive Care DIAGNOSES: - Bradycardia, unspecified - Chronic diastolic (congestive) heart failure - Left bundle-branch block, unspecified - Orthostatic hypotension - Syncope and collapse - Unsteadiness on feet 12/16/2024 09:20 [facility] [place] TYPE: Medical Surgical COMPLAINT: - ACCIDENTAL OVERDOSE DIAGNOSES: - Acute kidney failure, unspecified - Acute kidney failure, unspecified - Essential (primary) hypertension - Essential (primary) hypertension - Exposure to other specified factors, initial encounter - Exposure to other specified factors, initial encounter - Hyperlipidemia, unspecified - Hyperlipidemia, unspecified - Insomnia, unspecified - Insomnia, unspecified - [facility] (current) use of aspirin - 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 - [facility] (current) use of insulin - [facility] (current) use of insulin - [facility] (current) use of opiate analgesic - truck terminal manager (current) use of opiate analgesic - Other fatigue - Other half-way (current) drug therapy - 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 - Personal history of [...] unspecified - Iron deficiency anemia, unspecified - 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 - [facility] (current) use of insulin - Obstructive sleep apnea (adult) (pediatric) - Other half-way (current) drug therapy - Other malaise - Presence of cardiac pacemaker - Type 2 diabetes mellitus with diabetic polyneuropathy - Type 2 diabetes mellitus with hypoglycemia without coma 10/04/2024 03:12 [facility] RIDLEY ([place]) TYPE: Medical Surgical DIAGNOSES: - Acidosis, unspecified - Bilateral primary osteoarthritis of knee - Bradycardia, unspecified - Conduction disorder, unspecified - Encounter for adjustment and management of other part of cardiac pacemaker - Hyperkalemia - Sepsis, unspecified organism - Severe sepsis with septic shock 09/15/2024 02:33 [facility] RIDLEY ([place]) TYPE: Surgical Services DIAGNOSES: - Anemia in [...] 2 diabetes mellitus with hyperglycemia 06/01/2024 10:55 [facility] RIDLEY ([place]) TYPE: Medical Surgical DIAGNOSES: - Acute cystitis without hematuria - Chronic kidney disease, stage 3a - Fracture of unspecified part of neck of left femur, initial encounter for closed fracture - Fracture of unspecified part of neck of left femur, subsequent encounter for closed fracture with routine healing - 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
[2025-05-02 16:43] LABS: BASOPHILS 0.5 % (0.1-1.2); EOSINOPHILS 2.2 % (0.7-5.8); LYMPHOCYTES 22.7 % (19.3-51.7); MCH 28.8 PG (25.6-32.2); MCHC 32.1 g/dL (32.2-35.5); MCV 89.8 fL (79.4-94.8); MONOCYTES 9.0 % (4.7-12.5); NEUTROPHILS 64.8 % (34.0-71.1); RBC 3.54 M/uL (3.93-5.22)
[2025-05-02] MEDS ORDERED: SODIUM CHLORIDE 0.9% 500 ML IV ONE (16:45)
[2025-05-02 16:59] LABS: ALT (SGPT) 45.0 U/L (14-59); AST (SGOT) 35.0 U/L (15-37); GLOMERULAR FILTRATION RATE,EST 28.0 mL/min (>60); PROTEIN, TOTAL 7.1 g/dL (6.4-8.2); UREA NITROGEN 47.0 mg/dL (7-18)
[2025-05-02] MEDS ORDERED: SODIUM CHLORIDE 0.9% 500 ML IV PRN (18:30)
[2025-05-02 18:36] LABS: BLOOD/HGB, URINE NEGATIVE (Negative); KETONE, URINE TRACE (Negative); LEUK ESTERASE, URINE NEGATIVE (negative); NITRITE, URINE NEGATIVE (negative)
[2025-05-02 18:53] LABS: AMPHETAMINES, URINE NEGATIVE (NEGATIVE); BACTERIA, URINE NONE SEEN /hpf (negative); BARBITURATES, URINE NEGATIVE (NEGATIVE); BENZODIAZEPINE, URINE NEGATIVE (NEGATIVE); CANNABINOID, URINE NEGATIVE (NEGATIVE); COCAINE, URINE NEGATIVE (NEGATIVE); CRYSTALS, URINE NONE SEEN (0-1+); ECSTASY, URINE NEGATIVE (NEGATIVE); EPITHELIAL CELLS, URINE NONE SEEN /lpf (0-1+); FENTANYL, URINE NEGATIVE (NEGATIVE); METHADONE, URINE NEGATIVE (NEGATIVE); OPIATES, URINE NEGATIVE (NEGATIVE); OXYCODONE, URINE NEGATIVE (NEGATIVE); PHENCYCLIDINE, URINE NEGATIVE (NEGATIVE); REFLEX CULTURE, URINE No (No)
[2025-05-02] MEDS ORDERED: ACETAMINOPHEN 325 MG TAB PO PRN (20:00)
[2025-05-02] MEDS ORDERED: DEXTROSE 5% 1,000 ML IV PRN (20:00)
[2025-05-02] MEDS ORDERED: IBLOOD GLUCOSE TEST STRIP 1 EA TEST XX PRN (20:00)
[2025-05-02] MEDS ORDERED: LACTATED RINGER'S 1,000 ML IV SCH (20:00)
[2025-05-02] MEDS ORDERED: Calcium Gluconate in NS 1,000 MG/50 ML BAG IV ONE (20:00)
[2025-05-02] MEDS ORDERED: DEXTROSE 50% 50 ML SYR IV PRN ×2 (20:00)
[2025-05-02] MEDS ORDERED: GLUCAGON,HUMAN RECOMBINANT 1 MG/ML VIAL SUB-Q PRN (20:00)
--- NOTE | 2025-05-02 20:40 | NUR ---
report received from ed rn kareen. pt transferred from ed to ms and to ms bed via 3pa w/ transfer sheet. pt oriented to poc, bed alarm on and call light in reach. tele in place, primary rn in room completing assessment and reprot given to primary rn nicolle.
[2025-05-02] MEDS ORDERED: IBLOOD GLUCOSE TEST STRIP 1 EA TEST VI SCH (21:00)
[2025-05-02] MEDS ORDERED: INSULIN LISPRO 100 UNIT/ML ML SUB-Q SCH (21:00)
[2025-05-02 21:08] VITALS: BP 159/58
[2025-05-02 21:12] VITALS: BP 186/59
--- NOTE | 2025-05-02 21:15 | NUR ---
PT GOT IN FROM THE ED PER LEONEL, REPORT RECEIVED FROM LEO JOHANSEN. PT ALERT AND ORIENTED, C/O OF PAIN DURING TRANSFER BUT WAS OKAY WHEN NOT MOVING. IV INFUSING WELL. VITAL SIGNS TAKEN AND RECORDED. BP WAS A LITTLE ELEVATED AND HR RANGES FROM 60S TO 120 ON TELE PER CCU. PT ASYMPTOMATIC. NOTIFIED DR. TAYLOR, RESTARTED HOME METOPROLOL ORDERED. FULL ASSESSMENT DONE, BLOOD SUGAR CHECKED PER ORDER. DENIES FURTHER NEEDS. CALL LIGHT IN REACH.
[2025-05-02] MEDS ORDERED: METOPROLOL SUCCINATE 50 MG TABCR PO SCH (21:47)
[2025-05-02 21:54] LABS: GLOMERULAR FILTRATION RATE,EST 33.0 mL/min (>60); UREA NITROGEN 44.0 mg/dL (7-18)
[2025-05-02 22:01] VITALS: BP 186/59
--- NOTE | 2025-05-02 22:10 | NUR ---
scheduled evening meds given-see emar. vs obtained prior to med administration. pt swallowed med wnl, no additional needs. iv fluids primed and hung by primary rn nicolle, primary rn locked out of [employer] so this rn scanned iv fluids. call light in reach.
--- NOTE | 2025-05-02 23:33 | NUR ---
PT BLADDER SCANNED AT RN REQUEST. BLADDER SCAN SHOWED 450. RN NOTIFED. PT STATES NO NEEDS AT THIS TIME. CALL LIGHT WITHIN REACH.
[2025-05-03] VITALS (12 sets, daily range): BP systolic 130–185; BP diastolic 55–75
[2025-05-03] MEDS ORDERED: LIDOCAINE 2% VISCOUS 6 ML SYR TOP ONE (00:15)
--- NOTE | 2025-05-03 00:27 | NUR ---
PT HAS NOT URINATED AFTER GETTING 500 ML OF FLUID IN THE ED AND BEING ON FLUID FOR OVER 3 HOURS. PT COULD NOT URINATE WHEN SHE WAS IN THE ED, GOT UP TO THE COMMODE AND STILL COULD NOT GO AND HAD TO DO STRAIGHT CATH. PT BLADDER SCAN SHOWED 450 AND BLADDER FELT DISTENDED. ENCOURAGED PT TO VOID BUT NO SUCCESS. NOTIFIED DR. TAYLOR, STARTED PARKER CATHETER PER ORDER. DRAINED 550 INITIALLY AFTER PARKER STARTED.
--- NOTE | 2025-05-03 01:49 | NUR ---
HOUSE VISITOR OBTAINED VITALS AND I&O. PT STATES NO NEEDS AT THIS TIME. CALL LIGHT WITHIN REACH.
--- NOTE | 2025-05-03 02:25 | NUR ---
PT LAYING IN BED. RESPIRATIONS EVEN AND UNLABORED. IV FLUID INFUSING WELL. PARKER CATHETER DRAINING WELL. NO NEEDS NOTED AT THIS TIME. CALL LIGHT WITHIN REACH.
--- NOTE | 2025-05-03 04:33 | NUR ---
PT LAYING IN BED, RESPIRATIONS EVEN AND UNLABORED. IV FLUID INFUSING WELL. NO APPARENT NEEDS NOTED AT THIS TIME. CALL LIGHT WITHIN REACH.
[2025-05-03 05:13] LABS: BASOPHILS 0.3 % (0.1-1.2); EOSINOPHILS 3.5 % (0.7-5.8); LYMPHOCYTES 27.3 % (19.3-51.7); MCH 28.7 PG (25.6-32.2); MCHC 31.4 g/dL (32.2-35.5); MCV 91.5 fL (79.4-94.8); MONOCYTES 11.6 % (4.7-12.5); NEUTROPHILS 56.8 % (34.0-71.1); RBC 3.76 M/uL (3.93-5.22)
--- NOTE | 2025-05-03 05:22 | NUR ---
PT LAYING IN BED. VITAL SIGNS TAKEN AND RECORDED. INTAKE AND OUTPUT RECORDED. IV FLUID INFUSING WELL. PARKER CATHETER DRAINING WELL. DENIES FURTHER NEEDS. CALL LIGHT IN REACH.
[2025-05-03 05:28] LABS: ALT (SGPT) 27.0 U/L (14-59); AST (SGOT) 29.0 U/L (15-37); GLOMERULAR FILTRATION RATE,EST 35.0 mL/min (>60); PHOSPHORUS, INORGANIC 4.5 mg/dL (2.5-4.9); PROTEIN, TOTAL 6.4 g/dL (6.4-8.2); UREA NITROGEN 40.0 mg/dL (7-18)
--- NOTE | 2025-05-03 07:10 | NUR ---
Report rec'd from LEO Gaytan. PT RESTING QUIETLY IN BED WITH CPAP ON. IV INFUSING TO L WRIST LR @ 100ML/HR. NO ACUTE DISTRESS NOTED. SIDE RAILS UP X3, BED IN LOW POSITION AND LOCKED CALL MONAHAN IN REACH.
--- NOTE | 2025-05-03 07:58 | NUR ---
PATIENT IN CHAIR AT THIS TIME. THIS GRAINING MACHINE OPERATOR CHARTED HOURLY ROUNDS, BLOOD SUGAR, AND GOT PATIENT INTO CHAIR. CALL LIGHT WIHTIN REACH, NO FURTHER NEEDS.
[2025-05-03] MEDS ORDERED: METOPROLOL SUCCINATE 50 MG TABCR PO SCH (09:00)
[2025-05-03] MEDS ORDERED: ENOXAPARIN SODIUM 40 MG/0.4 ML SYR SUB-Q SCH (09:00)
[2025-05-03] MEDS ORDERED: MIRTAZAPINE7.5 MG PO (09:19)
[2025-05-03] MEDS ORDERED: PREGABALIN50 MG PO (09:20)
[2025-05-03] MEDS ORDERED: SPIRONOLACTONE25 MG PO (09:21)
--- NOTE | 2025-05-03 09:45 | NUR ---
Spoke with Catina. She lives with her daughter for the last year and a half after her spouse . She states she can dress her self and use a walker in the home. She has a 4ww walker, shower chair, grab bars and a CPAP. would like to interrogate her pacemaker. Pt plans on dc to home. She states they have had financial difficulties after her spouse passed. They have multiple medical bills due to his prolonged illness. They were able to sell their home and are slowing paying off bills. They are attempting to work with [facility] for assistance.
--- NOTE | 2025-05-03 10:32 | NUR ---
UR CLINICAL REVIEW: 2 MN FOR VERSALUS-PER QUENCHING CAR OPERATOR MEETS INPT RECURRENT FALLS/WEAKNESS WITH ONGOING WORK UP NEEDED, PT/OT AND SERIAL [employer] MEDICARE HMO INPT 05/02/25 @ 3027 ORDER MATCHES REG WILL FAX CLINICALS FOR AUTH REVIEW. ANTICIPATE DISCHARGE TO HOME IN 1-2 DAYS
[2025-05-03] MEDS ORDERED: PRENATAL FORMU1 EAC3 PO (11:08)
[2025-05-03] MEDS ORDERED: BACLOFEN5 MG PO (11:09)
--- NOTE | 2025-05-03 11:09 | NUR ---
MED REC COMPLETE
--- NOTE | 2025-05-03 11:10 | NUR ---
MED REC COMPLETE
--- NOTE | 2025-05-03 11:25 | NUR ---
PT SITTING UP IN CHAIR, DTR AT BEDSIDE. PROVIDED DIET SODA. CALL MONAHAN IN REACH, CHAIR RECLINED AND LOCKED. PT INSTRUCTED TO CALL FOR ASSISTANCE. IVF CONTINUE TO INFUSE AT 100ML/HR, NO SIGNS OF INFILTRATION.
[2025-05-03] MEDS ORDERED: PHARMACY RENAL DOSE ADJUSTMENT 1 DOSE MISC PO SCH (12:00)
--- NOTE | 2025-05-03 12:25 | NUR ---
DR. TAYLOR IN TO SEE PATIENT, PATIENT QUESTIONED FOR MANUFACTURE OF PACEMAKER. [employer] SYSTEMS MANAGER NOTIFIED OF NEED FOR PACEMAKER INTERROGATION. TRANSFER AGENT, [employer].
--- NOTE | 2025-05-03 12:45 | NUR ---
Returned to room as daughter arrived and is requesting a SNF for this pt. I spoke with PT and pt was able to walk 125' with her walker. I let the daughter and pt know she most likely will not qualify. They would like Home Health. Pts insurance is [facility] [employer] Advantage plan. It is unclear if they will cover HH. I let the daughter know I will send the chart and ask if [facility] to request auth. They are in agreement with this.
--- NOTE | 2025-05-03 13:02 | NUR ---
PT GLUCOSE READING COMPLETED AFTER LUNCH MEAL, 1UNIT OF INSULIN HELD PER CLINICAL JUDGEMENT. DR. RAGSDALE NOTIFIED.
--- NOTE | 2025-05-03 13:38 | NUR ---
I called and spoke with [facility]. They do not think this insurance will cover in [place]. They will send the chart for auth.
[2025-05-03] MEDS ORDERED: FLUOXETINE HCL 20 MG CAP PO SCH (13:46)
[2025-05-03] MEDS ORDERED: EMPAGLIFLOZIN 25 MG TAB PO SCH (13:47)
--- NOTE | 2025-05-03 14:01 | NUR ---
Chart faxed to [facility] at daughters request. Asked if they could request auth. ant let us know if HH will be covered.
--- NOTE | 2025-05-03 17:01 | NUR ---
PT L FA SKIN TEAR/ABRASION NOTED TO BE OOZING WITH BLOODY SCAB. PT REPORTS WOUND IS FROM [facility]. ALLEVYN APPLIED. PT DAUGHTER REMINDED TO BRING PACEMAKER CARD FOR FURTHER EVALATION R/T PENDING INTERROGATION. PT DENIES NEEDS AT THIS TIME. CALL MONAHAN IN REACH, BED IN LOW POSITION AND LOCKED, SIDERAILS UP X 2
--- NOTE | 2025-05-03 17:42 | NUR ---
PT RESTING T/O SHIFT. VERBALIZES NO C/O. F/C DRAINING CLEAR YELLOW URINE, IV LR INFUSING AT 100ML/HR TO R WRIST. MEDICATED X 1 WITH SS INSULIN. TELE #8 CONSIST RATE OF 65, ATRIAL PACED. PT DAUGHTER TO BRING IN PACEMAKER CARD IN AM FOR POSSIBLE MRI. COMPLIANT WITH ACTIVITY RESTRICTIONS AND USING CALL MONAHAN APPROPRIATELY. CALL MONAHAN IN REACH, BED IN LOW POSITION AND LOCKED, SIDERAILS UP X3
--- NOTE | 2025-05-03 19:31 | NUR ---
REPORT RECIEVED FROM LEO FRANCOIS. PATIENT SITTING UP IN BED WATCHING TV. PATIENT DENIES ANY NEEDS AT THIS TIME. CALL LIGHT AND PERSONAL BELONGINGS ARE WITHIN REACH.
--- NOTE | 2025-05-03 20:20 | NUR ---
PATIENT MEDICATED PER KAIN. VITAL SIGNS TAKEN AND ARE STABLE. PATIENT SITTING UP IN BED WATCHING TV AND DENIES ANY NEEDS AT THIS TIME. IV FLUIDS INFUSING PER EMAR. PATIENT IS WITHOUT FURTHER NEEDS AT THIS TIME. CALL LIGHT AND PERSONAL BELONGINGS ARE WITHIN REACH. RT AT BEDSIDE.
[2025-05-03] MEDS ORDERED: PREGABALIN 50 MG CAP PO SCH (21:00)
[2025-05-03] MEDS ORDERED: ATORVASTATIN 40 MG TAB PO SCH (21:00)
--- NOTE | 2025-05-03 21:07 | NUR ---
PATIENT ASSESSMENT COMPLETED. PATIENT RESTING IN BED AND DENIES ANY NEEDS AT THIS TIME. PATIENT ASSISTED WITH PLACING CPAP MASK ON. CALL LIGHT AND PERSONAL BELONGINGS ARE WITHIN REACH.
--- NOTE | 2025-05-03 22:11 | EKG ---
[facility] [address] [place] [address] Signed Sinus rhythm with occasional premature ventricular complexes Right bundle branch block Abnormal ECG When compared with ECG of 24-APR-2025 13:53, Sinus rhythm has replaced Electronic ventricular pacemaker Confirmed by Parker Ragsdale MD () on 05/03/2025 10:11:14 PM Electronically Signed By: PARKER RAGSDALE MD 05/03/252210 PATIENT NAME: DANIEL BERRIOS Electrocardiogram DATE OF : 47 PHYSICIAN: PARKER RAGSDALE MD REPORT #: [id number] REPORT IS CONFIDENTIAL AND NOT TO BE RELEASED WITHOUT AUTHORIZATION
--- NOTE | 2025-05-03 22:28 | NUR ---
in room to assist pt to bathroom, pt up sba with fww. incontinent of bm, pt had small bm, assisted with jose roberto care/cath care. pt back in bed, bed alarm on and call light in reach. per pt's own blood sugar reading, bs 76. primary rn lizette made aware and to pt room.
--- NOTE | 2025-05-03 22:30 | NUR ---
PATIENT REPORTING FEELING "TIRED AND WEAK LIKE MY BLOOD SUGAR IS LOW". PATIENT ALSO REPORTS THAT HER BLOOD SUGAR READING DEVICES IS TELLING HER THAT HER BLOOD SUGAR LEVEL IS 76. CBG CHECKED AND WAS 98. ORANGE JUICE AND PEANUT BUTTER PROVIDED. PATIENT STATES SHE WILL CALL AGAIN IF SHE DOESN'T FEEL ANY BETTER. PATIENT WITHOUT FURTHER NEEDS AT THIS TIME. CALL LIGHT AND PERSONAL BELONGINGS ARE WITHIN REACH.
[2025-05-04] VITALS (12 sets, daily range): BP systolic 140–190; BP diastolic 54–67
--- NOTE | 2025-05-04 00:25 | NUR ---
PATIENT RESTING IN BED WITH HER EYES CLOSED. EVEN AND UNLABORED RESPIRATIONS NOTED. PATIENT WITH CPAP ON. CALL LIGHT AND PERSONAL BELONGINGS ARE WITHIN REACH.
--- NOTE | 2025-05-04 01:55 | NUR ---
RAKE OPERATOR OBTAINED VITALS AND I&O. PARKER EMPTIED. PT STATES NO NEEDS AT THIS TIME. CALL LIGHT WITHIN REACH AND BED ALARM ON.
--- NOTE | 2025-05-04 02:28 | NUR ---
PATIENT RESTING IN BED AND DENIES ANY NEEDS AT THIS TIME. CALL LIGHT AND PERSONAL BELONGINGS ARE WITHIN REACH.
--- NOTE | 2025-05-04 05:00 | NUR ---
PATIENT SITTING UP IN BED ON HER PHONE. PATIENT DENIES ANY NEEDS AT THIS TIME. NEW BAG OF FLUIDS INFUSING PER EMAR. CALL LIGHT AND PERSONAL BELONGINGS ARE WITHIN REACH.
[2025-05-04 05:28] LABS: BASOPHILS 0.6 % (0.1-1.2); EOSINOPHILS 3.3 % (0.7-5.8); LYMPHOCYTES 26.5 % (19.3-51.7); MCH 28.8 PG (25.6-32.2); MCHC 32.1 g/dL (32.2-35.5); MCV 89.5 fL (79.4-94.8); MONOCYTES 9.1 % (4.7-12.5); NEUTROPHILS 60.1 % (34.0-71.1); RBC 3.44 M/uL (3.93-5.22)
--- NOTE | 2025-05-04 05:41 | NUR ---
ADJUNCT SOCIOLOGY PROFESSOR OBTAINED VITALS AND I&O. PARKER EMTPIED. PT STATES NO NEEDS AT THIS TIME. CALL LIGHT WITHIN REACH AND BED ALARM ON.
[2025-05-04 05:45] LABS: ALT (SGPT) 41.0 U/L (14-59); AST (SGOT) 29.0 U/L (15-37); GLOMERULAR FILTRATION RATE,EST 43.0 mL/min (>60); PROTEIN, TOTAL 6.0 g/dL (6.4-8.2); UREA NITROGEN 39.0 mg/dL (7-18)
--- NOTE | 2025-05-04 06:55 | NUR ---
REPORT REC'D FROM LEO BETANCUR. PT RESTING IN BED WITHOUT C/O AT THIS TIME. CALL MONAHAN IN REACH, BED IN LOW POSITION AND LOCKED.
[2025-05-04] MEDS ORDERED: ENOXAPARIN SODIUM 30 MG/0.3 ML SYR SUB-Q SCH (09:00)
--- NOTE | 2025-05-04 09:48 | NUR ---
PATIENT IS IN HER CHAIR AT THIS TIME, PATIENT WASHED HER FACE AND DID AM CARE, GOT FRESH LINENS. CHARTED VITALS AND I&O'S, CALL LIGHT WITH IN REACH, GOT FRESH ICE WATER, AND NOTHING ELSE NEEDED AT THIS TIME.
--- NOTE | 2025-05-04 09:49 | NUR ---
SpO2 HAS BEEN RUNNING IN THE HIGH 90'S. RT TO DC O2 ORDER. PLEASE CALL WITH CONCERNS OR O2 USE. CPAP AT BEDSIDE READY FOR USE.
--- NOTE | 2025-05-04 11:17 | NUR ---
PT RESTING IN CHAIR, IVF INFUSING TO L WRIST LR @ 100ML/HR. F/C CONTINUES TO DRAIN CLEAR YELLOW URINE. PT WITHOUT C/O. CALL MONAHAN IN REACH, CHAIR LOCKED.
--- NOTE | 2025-05-04 12:10 | NUR ---
F/C DC'D. PT NOTED TO BE INCONTINENT OF STOOL. PT BRIEF CHANGED AND SKIN CLEANSED. RETURNED TO RECLINER. PT INSTRUCTED TO CALL FOR ASSISTANCE FOR BRP OR TO NOTIFY IF NOTES INCONTINENCE. VERBALIZED UNDERSTANDING. CALL MONAHAN IN REACH, WHEELS ON RECLINER LOCKED.
--- NOTE | 2025-05-04 14:39 | NUR ---
PT SITTING UP IN CHAIR, NO C/O AT THIS TIME. CALL MONAHAN IN REACH, CHAIR LOCKED
--- NOTE | 2025-05-04 15:40 | NUR ---
PT UP TO BRP TO VOID, UNMEASURED, RETURNED TO BED. CALL MONAHAN IN REACH, BED IN LOW POSITION AND LOCKED. PT INSTRUCTED TO CALL FOR ASSISTANCE OOB.
--- NOTE | 2025-05-04 18:12 | NUR ---
PATIENT IS IN HER BED READING AT THIS TIME, ASSEMBLER FINAL CHARTED VITALS AND I&O'S, CALL LIGHT WITH IN REACH AND NOTHING ELSE NEEDED AT THIS TIME.
--- NOTE | 2025-05-04 18:15 | NUR ---
PT CARED FOR T/O SHIFT. PT TOLERATING PO INTAKE. F/C DC'D, PT ABLE TO VOID. PT AMBULATED WITH PT THIS AM WITH FWW, NO LOB REPORTED. PT PROVIDED PACEMAKER CARD FOR INTERROGATION. PT WILL NEED TO USE ZACHARY PROGRAM. PT NOTED WITH ELEVATED BLOOD GLUCOSE AND MEDICATED WITH INSULIN PER SS. PT NO C/O PAIN OR OTHER ISSUES. PT UP TO RECLINER T/O DAY. SIDERAILS UP X2, CALL MONAHAN IN REACH, BED IN LOW POSITION AND LOCKED
--- NOTE | 2025-05-04 19:15 | NUR ---
REPORT RECIEVED FROM LEO FRANCOIS. PATIENT RESTING IN BED WATCHING TV. PATIENT DENIES ANY NEEDS AT THIS TIME. CALL LIGHT AND PERSONAL BELONGINGS ARE WITHIN REACH.
--- NOTE | 2025-05-04 20:11 | NUR ---
PATIENT MEDICATED PER EMAR. PATIENT ASSESSMENT COMPLETED. PATIENT RESTING IN BED. CPAP MASK PUT WITHIN REACH. PATIENT STATES SHE CAN PLACE IT ON HERS[place]F WHEN SHES READY FOR BED. PATIENT WATCHING TV AND IS WITHOUT ANY NEEDS AT THIS TIME. CALL LIGHT AND PERSONAL BELONGINGS ARE WITHIN REACH.
--- NOTE | 2025-05-04 22:15 | NUR ---
PATIENT RESTING IN BED WITH HER EYES CLOSED. EVEN AND UNLABORED RESPIRATIONS NOTED. CALL LIGHT AND PERSONAL BELONGINGS ARE WITHIN REACH.
--- NOTE | 2025-05-05 00:23 | NUR ---
PATIENT SITTING UP IN BED AND DENIES ANY NEEDS AT THIS TIME. CALL LIGHT AND PERSONAL BELONGINGS ARE WITHIN REACH.
--- NOTE | 2025-05-05 01:30 | NUR ---
CUTTER OUT IN ROOM AT THIS TIME FOR VITAL SIGNS.
[2025-05-05 01:31] VITALS: BP 175/71
--- NOTE | 2025-05-05 02:11 | NUR ---
PATIENT IS LAYING IN BED. VITAL SIGNS AND I&OS WERE DONE. CALL LIGHT IS WITHIN REACH AND NO FURTHER AT THIS TIME.
[2025-05-05 02:21] VITALS: BP 175/71
--- NOTE | 2025-05-05 02:24 | NUR ---
PATIENT RESTING IN BED WITH HER EYES CLOSED. EVEN AND UNLABORED RESPIRATIONS NOTED. CALL LIGHT AND PERSONAL BELONGINGS ARE WITHIN REACH.
--- NOTE | 2025-05-05 03:15 | NUR ---
In with pt in response to call light. Pt states she needs to use the toilet. SBA as pt transfers to edge of bed, then ambulates into the bathroom using FWW. Pt provided with a clean brief. Pt voided 300ml clear yellow urine. Assistance with donning the brief provided. Pt washed her hands then ambulated back to bed (fresh chux applied as pt states she thinks she "wet the bed"). Bedside table, personal belongings, and call light placed in pt's reach. Pt denies further needs at this time.
[2025-05-05 05:10] LABS: BASOPHILS 0.5 % (0.1-1.2); EOSINOPHILS 3.5 % (0.7-5.8); LYMPHOCYTES 29.1 % (19.3-51.7); MCH 29.0 PG (25.6-32.2); MCHC 33.0 g/dL (32.2-35.5); MCV 87.8 fL (79.4-94.8); MONOCYTES 9.9 % (4.7-12.5); NEUTROPHILS 56.7 % (34.0-71.1); RBC 3.52 M/uL (3.93-5.22)
[2025-05-05 05:29] LABS: ALT (SGPT) 42.0 U/L (14-59); AST (SGOT) 34.0 U/L (15-37); GLOMERULAR FILTRATION RATE,EST 44.0 mL/min (>60); PROTEIN, TOTAL 6.3 g/dL (6.4-8.2); UREA NITROGEN 37.0 mg/dL (7-18)
[2025-05-05 05:54] VITALS: BP 150/87
--- NOTE | 2025-05-05 07:25 | NUR ---
PT UP TO THE TOILET AT TIME OF SHIFT REPORT. RETURNS TO THE RECLINER WITH ALARM SET. [facility]
--- NOTE | 2025-05-05 07:30 | NUR ---
IN TO DO MORNING ROUNDS AND BLOOD SUGAR. PATIENT IN CHAIR AT THIS TIME. WHITE BOARD UPDATED. CALL LIGHT IN REACH. NO FURTHER NEEDS AT THIS TIME.
--- NOTE | 2025-05-05 08:40 | NUR ---
PT EATS MOST OF MORNING MEAL CONTINUES UP IN RECLINER DENIES NEEDS AT THIS TIME
--- NOTE | 2025-05-05 09:29 | NUR ---
PT CONTINUES IN THE CHAIR USING ELECTRONIC DEVICE. SCD EDUCATION PROVIDED EQUIPMENT SET UP FOR USE WHEN PT RETURNS TO BED.
[2025-05-05 09:38] VITALS: BP 159/57
--- NOTE | 2025-05-05 09:42 | NUR ---
PATIENT SITTING UP IN CHAIR WATCHING TV AT THIS TIME. VITALS AND I&O'S DONE AND CHARTED. PATIENT REFUSED AM CARE AND SHOWER AT THIS TIME, STATED "I WILL DO IT ALL WHEN I GET HOME" CALL LIGHT IN REACH. NO FURTHER NEEDS AT THIS TIME.
[2025-05-05 10:39] VITALS: BP 159/57
--- NOTE | 2025-05-05 10:39 | NUR ---
DR DUNCAN IN TO SEE PT SHE AGREES SHE IS READY FOR DC ALL QUESTIONS ANSWERED
== END 2025-05-05 11:40 | disposition home health service (06) | DRG 641 ==
LOC: ED 16:15 → MS 19:57
PROVIDERS: Emergency Medicine; ADMIT Family Medicine; ATTEND Family Medicine
PROC: 5A09357 Assistance with Respiratory Ventilation, Less than 24 Consecutive Hours, Continuous Positive Airway Pressure (ICD-10-PCS; 2025-05-02)
PROC: 0T9B70Z Drainage of Bladder with Drainage Device, Via Natural or Artificial Opening (ICD-10-PCS; principal; 2025-05-03)
DX: E87.5 Hyperkalemia (principal); N17.9 Acute kidney failure, unspecified; R29.6 Repeated falls; N18.32 Chronic kidney disease, stage 3b; E11.22 Type 2 diabetes mellitus with diabetic chronic kidney disease; R33.9 Retention of urine, unspecified; F39 Unspecified mood [affective] disorder; E78.5 Hyperlipidemia, unspecified; I12.9 Hypertensive chronic kidney disease with stage 1 through stage 4 chronic kidney disease, or unspecified chronic kidney disease; G47.30 Sleep apnea, unspecified; E86.0 Dehydration; Z96.651 Presence of right artificial knee joint; Z91.81 History of falling; Z95.1 Presence of aortocoronary bypass graft; Z86.19 Personal history of other infectious and parasitic diseases; Z95.0 Presence of cardiac pacemaker; Z79.4 Long term (current) use of insulin; Z79.84 Long term (current) use of oral hypoglycemic drugs; Z79.82 Long term (current) use of aspirin
CPT/HCPCS: 36415; 51700; 51702; 70450; 71045; 80048; 80053; 80307; 81001; 83735; 84100; 84484; 85025; 93005; 93010; 94760; 94799; 96361; 96365; 97110; 97161; 97165; 97530; 97535; 99285-25; A9270; J1650; J1815; J7040; J7121

== ENCOUNTER 2025-05-13 13:43 | Emergency (ER) | payer MEDICARE ==
[~2025-05-13] VITALS: Ht 157.5 cm; Wt 62.5 kg
--- OUTSIDE RECORDS SUMMARY | ~2025-05-13 | XMS | Continuity of Care Document ---
Demographics + + + | Address | [address] | | | [place] [address] | + + + | Preferred Language | Unknown | + + + | Marital Status | Never | + + + | Restorationism Affiliation | Unknown | + + + | Race | White | + + + | Ethnic Group | Not or | + + + Author + + + | Author | [facility] | + + + | Organization | [facility] | + + + | Address | [address] | | | [place] [address] | + + + | Phone | | + + + Care Team Providers + + + + | Care Consulting Analyst Name | Role | Phone | + + + + Unavailable | Unavailable | + + + + Unavailable | Unavailable | + + + + Allergies No information. Encounters No information. Functional Status No information. Immunizations No information. Medications + + + + | date | description | facility | + + + + | (no date) | LISINOPRIL | [facility] | | | | [facility] | + + + + | (no date) | DAPAGLIFLOZIN PROPANEDIOL | [facility] [place] | | | | [facility] | + + + + | (no date) | Dapagliflozin Propanediol | [facility] | | | | [facility] | + + + + | (no date) | QUETIAPINE FUMARATE | [facility] [place] | | | | [facility] | + + + + | (no date) | INSULIN LISPRO | [facility] [place] | | | | [facility] | + + + + | (no date) | INSULIN LISPRO | [facility] [place] | | | | [facility] | + + + + | (no date) | MIRTAZAPINE | [facility] [place] | | | | [facility] | + + + + | (no date) | ATORVASTATIN CALCIUM | [facility] [place] | | | | [facility] | + + + + | (no date) | INSULIN GLARGINE | [facility] [place] | | | | [facility] | + + + + | (no date) | Aspirin | [facility] [place] | | | | [facility] | + + + + | (no date) | FERROUS SULFATE | [facility] [place] | | | | [facility] | + + + + | (no date) | Glucagon HCl | [facility] [place] | | | | [facility] | + + + + | (no date) | HYDROCHLOROTHIAZIDE | [facility] [place] | | | | [facility] | + + + + | (no date) | FLUOXETINE HCL | [facility] [place] | | | | [facility] | + + + + | (no date) | Baclofen | [facility] [place] | | | | [facility] | + + + + | (no date) | PREGABALIN | [facility] [place] [facility] | | | | [facility] | + + + + | (no date) | INSULIN | [facility] [place] [facility] | | | MESFIN HU | [facility] | + + + + | (no date) | HYDROCODONE | [facility] | | | BIT/ACETAMINOPHEN | [facility] | + + + + | (no date) | METOPROLOL SUCCINATE | [facility] [place] [facility] | | | | [facility] | + + + + Problems + + + + | date | description | facility | + + + + | 2025-02-15 00:00 | Polypharmacy | [facility] | | | | [facility] [...] | | | | | | - [facility] | | | | | | [...] 8.8 | mg/dL | (missing) | | [facility] | 16:53:07 | [facility] | | | [...] if ever smoked | [facility] [place] | | | | [facility] | + + + + Vital Signs [...]
[~2025-05-13 13:43] MED LIST changes: +MIRTAZAPINE7.5 MG PO; +PREGABALIN50 MG PO; +PRENATAL FORMU1 EAC3 PO; +SPIRONOLACTONE25 MG PO
--- OUTSIDE RECORDS SUMMARY | 2025-05-13 13:44 | XMS ---
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 Events No recent Security Events currently on file CRITERIA MET - 6 ED Visits in 6 Months - [facility] - [facility] - 2 Visits in 30 Days CARE PROVIDERS DREW MARTIN Nurse Practitioner: Current PHONE: [phone] LESLY PRINGLE Family Medicine Current PHONE: [phone] [address] Physician Assistant Kristina MORILLO PHONE: [phone] EDITH WEBER Emergency Medicine Current PHONE: [phone] SUNDEEP GUADALUPE Nurse Practitioner: Adult Health Kristina BLANCO PHONE: [phone] ADA SOUZA Internal Medicine Current PHONE: [phone] DEMARCO SOUZA Internal Medicine Current PHONE: Unknown SVETLANA VELASCO Nurse Practitioner Current PHONE: [phone] Giancarlo has no Care Guidelines for this patient. E.DRamon VISIT COUNT (12 MO.) [address] [facility] ([place]) TOTAL 14 NOTE: Visits indicate total known visits. 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 - Other specified personal [...] status, unspecified - Chronic sinusitis, unspecified - emt intermediate (current) use of antithrombotics/antiplatelets - emt intermediate (current) use of aspirin - Other shelter (current) drug therapy - Weakness 10/04/2024 03:12 [facility] [place] TYPE: Emergency DIAGNOSES: - Acidosis, unspecified - Bradycardia, unspecified - Conduction disorder, unspecified - Hyperkalemia - Sepsis, unspecified organism - Severe sepsis with septic shock - Altered Mental Status - Bradycardia 09/15/2024 02:33 [facility] [place] ([place]) TYPE: Emergency DIAGNOSES: - Chronic kidney disease, unspecified - Displaced oblique fracture of shaft of right femur, initial encounter for closed fracture - Hyperkalemia - Type 2 diabetes mellitus with hyperglycemia - Knee Pain 06/22/2024 07:25 [facility] [place] ([place] TYPE: Emergency DIAGNOSES: - Fracture of unspecified part of neck of left femur, initial encounter for closed fracture - Pain in left hip - Unspecified fall, initial encounter - Fall 06/01/2024 10:55 [facility] [place] [place] ([place] TYPE: Emergency DIAGNOSES: - Fracture of unspecified part of neck of left femur, initial encounter for closed fracture - Leg Pain 05/29/2024 13:28 [facility] [place] [place] ([place] TYPE: Emergency DIAGNOSES: - Displaced fracture of greater trochanter of left femur, initial encounter for closed fracture - Hip Pain 05/27/2024 20:27 [facility] [place] ([place] TYPE: Emergency DIAGNOSES: - Displaced fracture of greater trochanter of left femur, initial encounter for closed fracture - Back Pain 05/26/2024 06:36 [facility] [place] ([place]) TYPE: Emergency DIAGNOSES: - Contusion of left hip, initial encounter - Unspecified fall, initial encounter - Unspecified place in unspecified non-institutional (private) residence as the place of occurrence of the external cause - Hip Pain INPATIENT VISIT TRACKING (12 MO.) 05/02/2025 19:57 [facility] [place] TYPE: Medical Surgical COMPLAINT: - FALLS, WEAKNESS DIAGNOSES: - Acute kidney failure, unspecified - Acute kidney failure, unspecified - Chronic kidney disease, stage 3b - Chronic kidney disease, stage 3b - Dehydration - Dehydration - History of falling - History of falling - Hyperkalemia - Hyperkalemia - Hyperlipidemia, unspecified - Hyperlipidemia, unspecified - Hypertensive chronic kidney disease with stage 1 through stage 4 chronic kidney disease, or unspecified chronic kidney disease - Hypertensive chronic kidney disease with stage 1 through stage 4 chronic kidney disease, or unspecified chronic kidney disease - retirement (current) use of aspirin - emt intermediate (current) use of aspirin - emt intermediate (current) use of insulin - retirement (current) use of insulin - emt intermediate (current) use of oral hypoglycemic drugs - retirement (current) use of oral hypoglycemic drugs - Personal history of other infectious and parasitic diseases - Personal history of other infectious and parasitic diseases - Presence of aortocoronary bypass graft - Presence of aortocoronary bypass graft - Presence of cardiac pacemaker - Presence of cardiac pacemaker - Presence of right artificial knee joint - Presence of right artificial knee joint - Repeated falls - Repeated falls - Retention of urine, unspecified - Retention of urine, unspecified - Sleep apnea, unspecified - Sleep apnea, unspecified - Type 2 diabetes mellitus with diabetic chronic kidney disease - Type 2 diabetes mellitus with diabetic chronic kidney disease - Unspecified mood [affective] disorder - Unspecified mood [affective] disorder - Weakness 03/14/2025 06:06 [facility] [place] ([place]) TYPE: Intensive Care DIAGNOSES: [...] - Insomnia, unspecified - Insomnia, unspecified - retirement (current) use of aspirin - emt intermediate (current) use of aspirin - retirement (current) use of insulin - retirement (current) use of insulin - retirement (current) use of opiate analgesic - emt intermediate (current) use of opiate analgesic - Other fatigue - 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 - 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 - Personal history of [...] unspecified - Iron deficiency anemia, unspecified - emt intermediate (current) use of aspirin - emt intermediate (current) use of insulin - Obstructive sleep apnea (adult) (pediatric) - Other shelter (current) drug therapy - Other malaise - Presence of cardiac pacemaker - Type 2 diabetes mellitus with diabetic polyneuropathy - Type 2 diabetes mellitus with hypoglycemia without coma 10/04/2024 03:12 [facility] [place] ([place] TYPE: Medical Surgical DIAGNOSES: - Acidosis, unspecified - Bilateral primary osteoarthritis of knee - Bradycardia, unspecified - Conduction disorder, unspecified - Encounter for adjustment and management of other part of cardiac pacemaker - Hyperkalemia - Sepsis, unspecified organism - Severe sepsis with septic shock 09/15/2024 02:33 [facility] [place] ([place]) TYPE: Surgical Services DIAGNOSES: - Anemia in [...] 2 diabetes mellitus with hyperglycemia [facility] DIAGNOSES: - Acute cystitis without hematuria - Chronic kidney disease, stage 3a - Fracture of unspecified part of neck of left femur, initial encounter for closed fracture - Fracture of unspecified part of neck of left femur, subsequent encounter for closed fracture with routine healing - emt intermediate (current) use of insulin - Type 2 diabetes mellitus without complications [id number]
[2025-05-13] MEDS ORDERED: HYDROCODON-ACE1 EA10 PO (15:34)
[2025-05-13 15:48] VITALS: BP 198/79
== END 2025-05-13 15:40 | disposition home or self-care (01) ==
LOC: ED 13:43
DX: S09.90XA Unspecified injury of head, initial encounter (principal); R07.89 Other chest pain; I10 Essential (primary) hypertension; E11.9 Type 2 diabetes mellitus without complications; W18.30XA Fall on same level, unspecified, initial encounter; Z59.89 Other problems related to housing and economic circumstances; G47.30 Sleep apnea, unspecified
CPT/HCPCS: 70450; 71045; 72125; 99284-25